=== PATIENT | female | born 1985 | race Caucasian/White ===

== ENCOUNTER → 2019-08-20 10:14 | Outpatient (BNVA) | payer BC, SELFPAY | PROVIDERS: Family Provider Nurse Practitioner Family; PCP Nurse Practitioner Family; Visit Provider Internal Medicine Rheumatology | DX: R76.8 Other specified abnormal immunological findings in serum (principal); M35.9 Systemic involvement of connective tissue, unspecified; M54.2 Cervicalgia; M54.9 Dorsalgia, unspecified; M25.50 Pain in unspecified joint; J44.9 Chronic obstructive pulmonary disease, unspecified | CPT/HCPCS: 99214 ==

== ENCOUNTER → 2019-12-18 10:28 | Outpatient (BNVA) | payer BC, SELFPAY | PROVIDERS: Family Provider Nurse Practitioner Family; PCP Nurse Practitioner Family; Visit Provider Internal Medicine Rheumatology | DX: Z79.899 Other long term (current) drug therapy (principal); Z11.59 Encounter for screening for other viral diseases; R53.83 Other fatigue; R76.8 Other specified abnormal immunological findings in serum | CPT/HCPCS: 36415; 80076; 81001; 82306; 82565; 82570; 84156; 84439; 84443; 85025; 85651; 86140; 86803 ==

== ENCOUNTER 2020-01-29 10:49 | Outpatient (CLI) | payer MEDICAID, SELFPAY ==
[2020-01-29 11:42] LABS: Alanine Aminotransferase 14 U/L (0-33); Albumin Level 4.2 g/dL (3.5-5.2); Alkaline Phosphatase 54 IU/L (35-105); Aspartate Amino Transferase 22 U/L (0-32); C Reactive Protein 72.1 mg/L (0.0-4.9); Globulin 3.2 g/dL (1.3-4.6); Glomerular Filtration Rate 94.7 mL/min (90-130); Total Bilirubin 0.2 mg/dL (0.15-1.2); Total Protein 7.4 g/dL (6.6-8.7)
== END 2020-01-29 10:50 | disposition home or self-care (01) ==
LOC: LAB 10:56
PROVIDERS: PCP Family Medicine; Visit Provider Internal Medicine Rheumatology
DX: Z79.899 Other long term (current) drug therapy (principal)
CPT/HCPCS: 36415; 80076; 81001; 82565; 82575; 84156; 86140

== ENCOUNTER 2020-01-30 13:37 | Emergency (ER) | payer MEDICAID, SELFPAY ==
[2020-01-30 13:44] VITALS: BP 127/84; PULSE 105; RESP 14; TEMP 36.2; O2SAT 97; BMI 20.7
--- NOTE | 2020-01-30 17:20 | ED_ITS ---
HPI - General Adult General: Chief complaint: General Medical Stated complaint: n/v, lupus problems Time Seen by Provider: 01/30/20 16:25 History of Present Illness: HPI narrative: 34-year-old female comes in states having a lupus flare.. She usually sees rheumatology and has been started on hydroxychloroquine recently and seemed to been doing better but for the last few weeks or months she has been having more problems she is having some vomiting and diarrhea today she was supposed to have some labs done and had difficulty getting the blood drawn. She did get started on Cipro prednisone today she states she still feels very achy and has a lot of myalgias. Onset (ago): week(s) Radiation: non-radiation Severity: severe Quality: aching Pain Consistency: intermittent Relieving factors: none Exacerbating factors: none Associated symptoms: Reports confusion, decreased appetite, malaise, nausea, vomiting and weakness; Deny chest pain, cough, diaphoresis, dyspnea, fevers/chills, headache(s) or rash Treatments prior to arrival: other (Prednisone) Review of Systems Const: Reports: malaise; Denies: diaphoresis ENMT: Denies: throat pain, ear or mastoid pain, nasal discharge or nasal congestion Card: Denies: chest pain Resp: Denies: dyspnea GI: Reports: nausea and vomiting : Denies: flank pain, difficulty voiding, dysuria, urinary frequency or urin jaja urgency Skin/Breast: Denies: rash or pruritus Neuro: Reports: confusion; Denies: headache(s) PFS ED PFSH: Medical History (Updated 02/07/20 @ 00:00 by ) Acute anxiety Anxiety Arthralgia of both hands Asthmatic bronchitis , chronic Bipolar disorder delivery delivered x3 High risk medication use Positive PITO (antinuclear antibody) Undifferentiated connective tissue disease Social History (Updated 02/03/20 @ 12:03 by Ileana Mina LPN) Smoking and tobacco status: former smoker Alcohol intake: never Physical Exam Const: COMMON NORMALS: no acute distress GENERAL APPEARANCE: cooperative and comfortable ORIENTATION/CONSCIOUSNESS: Yes awake, Yes oriented to person, Yes oriented to place and Yes oriented to time HENMT: COMMON NORMALS: normocephalic, atraumatic, hearing grossly normal bilaterally, external ears normal, EAC's normal, TM's normal bilaterally, Normal nasal mucous membranes and turbinates present, moist oral mucous membranes and oropharynx normal HEAD & SCALP: normocephalic and atraumatic NOSE: Normal nasal mucous membranes and turbinates present EXTERNAL EAR: Yes external ears normal EXTERNAL AUDITORY CANAL: EAC's normal TYMPANIC MEMBRANE: TM's normal bilaterally Eye: COMMON NORMALS: Equal, round and reactive pupils present, EOMs intact bilaterally, conjunctivae normal and no scleral icterus CONJUNCTIVA: Yes conjunctivae normal PUPIL: Yes Equal, round and reactive pupils present Neck/C-Spine: COMMON NORMALS: full ROM, no lymphadenopathy, supple and no JVD Lymph: LYMPHATIC: no lymphadenopathy noted and no lymphedema noted Resp: COMMON NORMALS: normal respiratory effort, No retractions, No use of accessory muscles and clear to auscultation bilaterally AUSCULTATION: clear to auscultation bilaterally Cardio: COMMON NORMALS: no JVD, regular rate, regular rhythm and No murmurs present (Cardio) RATE: regular rate RHYTHM: regular rhythm GI: COMMON NORMALS: Soft to palpation and No hepatosplenomegaly present AUSCULTATION: Yes normoactive bowel sounds PALPATION: Yes Soft to palpation, No Tenderness to palpation present (GI), No Guarding due to palpation present (GI) and Yes No hepatosplenomegaly present Extremity: COMMON NORMALS: normal to inspection, capillary refill normal, no clubbing, cyanosis or edema, no calf tenderness and no pedal edema Neuro: SENSORIUM/ORIENTATION: Yes oriented to person, Yes oriented to place and Yes oriented to time Skin: COMMON NORMALS: no rashes or lesions noted GENERAL SKIN EXAM: no rashes or lesions noted Course Vital Signs: Vital signs: Vital Signs Temperature 97.1 F L 01/30/20 13:44 Pulse Rate 78 01/30/20 20:32 Respiratory Rate 16 01/30/20 20:32 Blood Pressure 114/72 01/30/20 20:32 Pulse Oximetry 96 01/30/20 20:32 MDM - General Adult MDM Narrative: Medical decision making narrative: Patient given 125 of IV Solu-Medrol. Encouraged her to continue the steroid taper her primary care gave her. Resume tomorrow. She is feeling much better will discharge home. Lab Data: Labs: Lab Results 01/30/20 01/30/20 01/30/20 Range/Units 18:46 18:46 18:46 WBC 5.9 (4.0-10.0) 10^3/ uL RBC 4.55 (4.1-5.3) 10^6/u L Hgb 13.6 (11.5-15.3) g/dL Hct 41.1 (37.0-47.0) % MCV 90.3 (81-99) fL MCH 29.9 (28.0-34.0) pg MCHC 33.1 (30.0-36.0) g/dL RDW 11.9 L (12.1-15.1) % Plt Count 327 (130-400) 10^3/c mm MPV 10.6 H (7.4-10.4) fL Neut % (Auto) 70.9 % Lymph % (Auto) 20.1 % [place] % (Auto) 8.2 % Eos % (Auto) 0.2 % Baso % (Auto) 0.3 % Neut # (Auto) 4.16 (1.8-7.7) 10^3/u L Lymph # (Auto) 1.2 (0.8-4.8) 10^3/u L [place] # (Auto) 0.5 (0.2-0.9) 10^3/u L Eos # (Auto) 0.0 (0.0-0.8) 10^3/u L Baso # (Auto) 0.0 (0.0-0.1) 10^3/u L Nucleated RBC % (a uto) 0 % Nucleated RBCs # 0.0 /100WBC ESR 59 H (0-15) mm/hr Sodium 139 (136-145) mmol/L Potassium 4.2 (3.5-5.1) mmol/L Chloride 101 (98-107) mmol/L Carbon Dioxide 25 (22-29) mmol/L Anion Gap 17.2 (5-19) BUN 16 (6-20) mg/dL Creatinine 0.6 (0.5-0.9) mg/dL GFR Calculation 113.1 (90-130) mL/min Glucose 108 (65-115) mg/dL Calculated Osmolal ity 285 (285-295) mOsm/k g Calcium 9.9 (8.5-10.5) mg/dL Total Bilirubin 0.2 (0.15-1.2) mg/dL AST 25 (0-32) U/L ALT 13 (0-33) U/L Alkaline Phosphata se 59 (35-105) IU/L C-Reactive Protein 69.6 H (0.0-4.9) mg/L Total Protein 8.5 (6.6-8.7) g/dL Albumin 4.8 (3.5-5.2) g/dL Globulin 3.7 (1.3-4.6) g/dL Discharge Plan Discharge Patient Disposition: Home, Self-Care Clinical Impression: Lupus, Nausea & vomiting Condition: Stable Prescriptions: New Zofran 4 mg tablet 4 mg PO Q6H PRN (Reason: nausea and vomiting) Qty: 15 RF: 0 No Action hydroxychloroquine 200 mg tablet 200 mg PO DAILY Qty: 30 RF: 3 doxycycline hyclate 100 mg capsule 100 mg PO BID 10 Days Qty: 20 RF: 0 prednisone 5 mg tablet 5 mg PO BID Qty: 60 RF: 3 pantoprazole 40 mg tablet,delayed release (DR/EC) 40 mg PO DAILY Qty: 30 RF: 3 hydroxyzine HCl 10 mg tablet 10 mg PO TID PRN (Reason: unknown) RF: 0 mirtazapine [Remeron] 15 mg tablet 7.5 mg PO DAILY PRN (Reason: unknown) RF: 0 bupropion HCl 150 mg tablet sustained-release 12 hr 150 mg PO BID RF: 0 Vitamin C Powder See Rx Instructions .ROUTE .COMPLEX RF: 0 ibuprofen 200 mg Tablet 800 mg PO PRN RF: 0 fluticasone propionate 50 mcg/actuation spray,suspension 2 spray INTRANASAL DAILY RF: 0 Vitamin B-12 1 - 2 ml PO DAILY RF: 0 Vitamin D Drops See Rx Instructions .ROUTE .COMPLEX RF: 0 naproxen 1 - 2 tab PO PRN RF: 0 Discharge Orders: Discharge Order (Routine); Ordered 01/30/20 Ordered By: Agustin Squires Referrals: Maverick Moore [Primary Care Provider] - Discharge Diet: Clear Liquid Discharge Activity: Increase activity as tolerated Activity Restrictions/Additional Instructions: Follow-up with your primary care doctor within the next week return to the ER for recurrence of persistent nausea and vomiting Discharge Date/Time: 01/30/20 20:33 Coding Level of Care Code ED Wire Stitcher Operator for [facility] Fwd Exam Comprehensive
--- NOTE | 2020-01-30 18:57 | W.ED.GENADLT ---
HPI - General Adult General: Chief complaint: General Medical Stated complaint: n/v, lupus problems Time Seen by Provider: 01/30/20 16:25 History of Present Illness: Quality: aching Relieving factors: none Exacerbating factors: none Treatments prior to arrival: other (Prednisone) [facility] ED PFSH: Medical History Acute anxiety Arthralgia of both hands Asthmatic bronchitis , chronic Bipolar disorder delivery delivered x3 High risk medication use Positive PITO (antinuclear antibody) Undifferentiated connective tissue disease Social History (Updated 01/30/20 @ 17:30 by Agustin Squires DO) Smoking and tobacco status: former smoker Alcohol intake: never Procedures EJ/Peripheral Line Arm R: Time Out Performed: Yes Skin Cleansed in Sterile Fashion: Yes Size (gauge): 20 IV Secured and Dressing Applied: Yes Patient Tolerated Procedure: well Additional Comments: Ultrasound guidance was utilized. Tip of the needle was visualized in the vein and catheter was advanced with good blood draw and flushing afterward - Darcie Newsome DO Course Vital Signs: Vital signs: Vital Signs Temperature 97.1 F L 01/30/20 13:44 Pulse Rate 105 H 01/30/20 13:44 Respiratory Rate 14 01/30/20 13:44 Blood Pressure 127/84 01/30/20 13:44 Pulse Oximetry 97 01/30/20 13:44 Discharge Plan Discharge Condition: Good Prescriptions: No Action prednisone 10 mg tablet 10 mg PO DAILY Qty: 10 RF: 0 hydroxyzine HCl 10 mg tablet 10 mg PO TID PRN (Reason: unknown) RF: 0 mirtazapine [Remeron] 15 mg tablet 7.5 mg PO DAILY PRN (Reason: unknown) RF: 0 bupropion HCl 150 mg tablet sustained-release 12 hr 150 mg PO BID RF: 0 Vitamin C Powder See Rx Instructions .ROUTE .COMPLEX RF: 0 ibuprofen 200 mg Tablet 800 mg PO PRN RF: 0 fluticasone propionate 50 mcg/actuation spray,suspension 2 spray INTRANASAL DAILY RF: 0 Vitamin B-12 1 - 2 ml PO DAILY RF: 0 Vitamin D Drops See Rx Instructions .ROUTE .COMPLEX RF: 0 naproxen 1 - 2 tab PO PRN RF: 0 hydroxychloroquine 200 mg tablet 200 mg PO DAILY RF: 0 Coding Level of Care Code ED Multiple Effect Evaporator Operator for Chg Fwd
[2020-01-30 18:58] LABS: Basophils % 0.3 %; Eosinophils % 0.2 %; Hematocrit 41.1 % (37.0-47.0); Hemoglobin 13.6 g/dL (11.5-15.3); Lymphocytes # 1.2 10^3/uL (0.8-4.8); Lymphocytes % 20.1 %; Mean Corpuscular HGB Conc 33.1 g/dL (30.0-36.0); Mean Corpuscular Hemoglobin 29.9 pg (28.0-34.0); Mean Corpuscular Volume 90.3 fL (81-99); Mean Platelet Volume 10.6 fL (7.4-10.4); Monocytes # 0.5 10^3/uL (0.2-0.9); Monocytes % 8.2 %; Neutrophils # 4.16 10^3/uL (1.8-7.7); Neutrophils % 70.9 %; Nucleated Red Blood Cells % 0 %; Platelet Count 327 10^3/cmm (130-400); Red Blood Count 4.55 10^6/uL (4.1-5.3); Red Cell Distribution Width 11.9 % (12.1-15.1); White Blood Count 5.9 10^3/uL (4.0-10.0)
[2020-01-30] MEDS: ondansetron 2 mg/ML SDV 2 mL 4 MG IVP (19:13)
[2020-01-30] MEDS: sodium chloride 0.9% 1,000 ML 999 ML IV (19:14)
[2020-01-30 19:21] LABS: Alanine Aminotransferase 13 U/L (0-33); Albumin Level 4.8 g/dL (3.5-5.2); Alkaline Phosphatase 59 IU/L (35-105); Anion Gap 17.2 (5-19); Aspartate Amino Transferase 25 U/L (0-32); Blood Urea Nitrogen 16 mg/dL (6-20); C Reactive Protein 69.6 mg/L (0.0-4.9); Calcium 9.9 mg/dL (8.5-10.5); Carbon Dioxide 25 mmol/L (22-29); Chloride 101 mmol/L (98-107); Globulin 3.7 g/dL (1.3-4.6); Glomerular Filtration Rate 113.1 mL/min (90-130); Glucose 108 mg/dL (65-115); Osmolality Calculated 285 mOsm/kg (285-295); Potassium 4.2 mmol/L (3.5-5.1); Sodium 139 mmol/L (136-145); Total Bilirubin 0.2 mg/dL (0.15-1.2); Total Protein 8.5 g/dL (6.6-8.7)
[2020-01-30 20:32] VITALS: BP 114/72; PULSE 78; RESP 16; O2SAT 96
[2020-01-30 21:11] LABS: Erythrocyte Sedimentation Rate 59 mm/hr (0-15)
== END 2020-01-30 20:33 | disposition home or self-care (01) ==
PROVIDERS: Emergency Provider Family Medicine; PCP Family Medicine
DX: R11.2 Nausea with vomiting, unspecified (principal); M32.9 Systemic lupus erythematosus, unspecified; Z87.891 Personal history of nicotine dependence
CPT/HCPCS: 12345; 36573; 80053; 85025; 85651; 86140; 96361; 96374; 96375; 99282; 99283; J2405; J2930; J7030

== ENCOUNTER → 2020-02-03 11:45 | Outpatient (BNVA) | payer MEDICAID, SELFPAY | PROVIDERS: PCP Family Medicine; Visit Provider Internal Medicine Rheumatology | DX: M35.9 Systemic involvement of connective tissue, unspecified (principal); M25.541 Pain in joints of right hand; M25.542 Pain in joints of left hand; R76.8 Other specified abnormal immunological findings in serum; F41.9 Anxiety disorder, unspecified; F31.9 Bipolar disorder, unspecified; Z79.899 Other long term (current) drug therapy | CPT/HCPCS: 99214 ==

== ENCOUNTER 2020-02-15 17:43 | Emergency (ER) | payer MEDICAID, SELFPAY ==
[2020-02-15 17:57] VITALS: BMI 20.7
[2020-02-15 18:01] VITALS: BP 135/73; PULSE 96; RESP 18; TEMP 36.8; O2SAT 99
--- NOTE | 2020-02-15 18:29 | W.ED.GENADLT ---
HPI - General Adult General: Chief complaint: General Medical Stated complaint: hurts all over Time Seen by Provider: 02/15/20 18:28 Source: patient Mode of arrival: ambulatory Limitations: no limitations History of Present Illness: HPI narrative: 34-year-old female comes in with a history of lupus or other autoimmune disorder. Patient has seen the slurry control tender and they feel that she does not have lupus. At this time they are referring her to neurology for further work-up for MS. Patient reports that she has pain all over and and states that she notices some improvement with the increase in the steroid from 5 mg twice a day to 10 mg twice a day. Patient thinks it may she may need to have a increase in the dose again. Patient appears well. Patient appears in no acute distress. Patient appears alert mild pain at rest. Review of Systems General: Reports: 10 or more systems reviewed and unremarkable except in HPI and below Musc: Reports: other (Generalized body pain) PFS ED PFSH: Medical History (Updated 02/15/20 @ 21:13 by ELISEO Gabriel) Acute anxiety Anxiety Arthralgia of both hands Asthmatic bronchitis , chronic Bipolar disorder delivery delivered x3 High risk medication use Positive PITO (antinuclear antibody) Undifferentiated connective tissue disease Social History (Updated 02/03/20 @ 12:03 by Ileana Mina LPN) Smoking and tobacco status: former smoker Alcohol intake: never History of recent travel: No Female Reproductive History: Date of last menstrual period: 02/15/20 Physical Exam Const: COMMON NORMALS: no acute distress and patient oriented x3 GENERAL APPEARANCE: cooperative HENMT: COMMON NORMALS: normocephalic and Normal external nose present HEAD & SCALP: normal to inspection and normocephalic NOSE: Normal external nose present THROAT: posterior oropharynx normal Eye: GENERAL EYE: appearance normal, both eyes and all related structures Neck/C-Spine: COMMON NORMALS: full ROM Lymph: LYMPHATIC: no lymphadenopathy noted Chest: COMMONS NORMALS: normal inspection of the chest Resp: COMMON NORMALS: normal respiratory effort EFFORT & INSPECTION: Yes able to speak in complete sentences Cardio: COMMON NORMALS: regular rate and regular rhythm RATE: regular rate RHYTHM: regular rhythm GI: COMMON NORMALS: non-tender : COMMON NORMALS: Yes no CVA tenderness BLADDER/KIDNEY EXAM: Yes no CVA tenderness Back/Pelvis: COMMON NORMALS: no CVA tenderness and thoracic and lumbar spine normal to inspection Extremity: COMMON NORMALS: normal to inspection Neuro: COMMON NORMALS: patient oriented x3 and moves all extremities Psych: COMMON NORMALS: mental status grossly normal and cooperative Skin: COMMON NORMALS: no rashes or lesions noted GENERAL SKIN EXAM: no rashes or lesions noted Course Vital Signs: Vital signs: Vital Signs Temperature 98.3 F 02/15/20 18:01 Pulse Rate 82 02/15/20 21:04 Respiratory Rate 14 02/15/20 21:04 Blood Pressure 130/81 02/15/20 21:04 Pulse Oximetry 98 02/15/20 21:04 MDM - General Adult MDM Narrative: Medical decision making narrative: Patient comes in today with complaints of generalized joint pain and muscle aches. Patient had thought she was positive for lupus but was told by the slurry control tender he did not think it was a lupus. Patient has been referred to neurology for further evaluation to rule out multiple sclerosis. Exam notes abdomen soft nontender. Patient moves all extremities well. No abnormalities are noted in the eyes. Vital signs are normal. Differential diagnosis includes but not limited to rheumatoid arthritis, lupus, multiple sclerosis, fibromyalgia, malingering. Laboratory values noted a mild increase in white blood cells at 13 and a mild anemia at 10 and 34. Patient had reported that she had had some improvement with an increase in her prednisone from 5 to 10 mg twice a day, I will increase her prednisone to 20 mg twice a day for the next 7 days and we will give her 80 mg of Solu-Medrol in the emergency department. Patient should continue with routine scheduled specialist appointments and follow-up with her primary care for other treatment options. Patient reports understanding agreed to plan. Lab Data: Labs: Lab Results 02/15/20 02/15/20 02/15/20 Range/Units 18:59 18:59 20:30 WBC 13.1 H (4.0-10.0) 10^3/ uL RBC 3.61 L (4.1-5.3) 10^6/u L Hgb 10.8 L (11.5-15.3) g/dL Hct 34.4 L (37.0-47.0) % MCV 95.3 (81-99) fL MCH 29.9 (28.0-34.0) pg MCHC 31.4 (30.0-36.0) g/dL RDW 13.9 (12.1-15.1) % Plt Count 292 (130-400) 10^3/c mm MPV 11.3 H (7.4-10.4) fL Neut % (Auto) 74.7 % Lymph % (Auto) 17.1 % [place] % (Auto) 7.3 % Eos % (Auto) 0.2 % Baso % (Auto) 0.2 % Neut # (Auto) 9.80 H (1.8-7.7) 10^3/u L Lymph # (Auto) 2.2 (0.8-4.8) 10^3/u L [place] # (Auto) 1.0 H (0.2-0.9) 10^3/u L Eos # (Auto) 0.0 (0.0-0.8) 10^3/u L Baso # (Auto) 0.0 (0.0-0.1) 10^3/u L Nucleated RBC % (a uto) 0 % Nucleated RBCs # 0.0 /100WBC Sodium 141 (136-145) mmol/L Potassium 3.8 (3.5-5.1) mmol/L Chloride 109 H (98-107) mmol/L Carbon Dioxide 20 L (22-29) mmol/L Anion Gap 15.8 (5-19) BUN 17 (6-20) mg/dL Creatinine 0.7 (0.5-0.9) mg/dL GFR Calculation 94.7 (90-130) mL/min Glucose 110 (65-115) mg/dL Calculated Osmolal ity 289 (285-295) mOsm/k g Calcium 9.5 (8.5-10.5) mg/dL Total Bilirubin 0.2 (0.15-1.2) mg/dL AST 22 (0-32) U/L ALT 23 (0-33) U/L Alkaline Phosphata se 58 (35-105) IU/L Total Protein 6.0 L (6.6-8.7) g/dL Albumin 4.0 (3.5-5.2) g/dL Globulin 2.0 (1.3-4.6) g/dL Urine Color Straw (Yellow) Urine Appearance Clear (CLEAR) Urine pH 6 (5-7) Ur Specific Gravit y 1.015 (1.005-1.030) Urine Protein Neg (Negative) Urine Glucose (UA) Norm (Normal) Urine Ketones Negative (Negative) Urine Blood Neg (Negative) Urine Nitrate Negative (Negative) Urine Bilirubin Neg (NEGATIVE) Urine Urobilinogen Norm (Negative) mg/dL Ur Leukocyte Micaela ase Negative (Negative) Discharge Plan Discharge Patient Disposition: Home Clinical Impression: Positive PITO (antinuclear antibody) Arthralgia Qualifiers: Joint pain location: unspecified Qualified Code(s): M25.50 - Pain in unspecified joint Condition: Stable Prescriptions: New prednisone 20 mg tablet 20 mg PO BID 7 Days Qty: 14 RF: 0 No Action hydroxychloroquine 200 mg tablet 200 mg PO DAILY Qty: 30 RF: 3 doxycycline hyclate 100 mg capsule 100 mg PO BID 10 Days Qty: 20 RF: 0 prednisone 5 mg tablet 5 mg PO BID Qty: 60 RF: 3 pantoprazole 40 mg tablet,delayed release (DR/EC) 40 mg PO DAILY Qty: 30 RF: 3 hydroxyzine HCl 10 mg tablet 10 mg PO TID PRN (Reason: unknown) RF: 0 mirtazapine [Remeron] 15 mg tablet 7.5 mg PO DAILY PRN (Reason: unknown) RF: 0 bupropion HCl 150 mg tablet sustained-release 12 hr 150 mg PO BID RF: 0 Vitamin C Powder See Rx Instructions .ROUTE .COMPLEX RF: 0 ibuprofen 200 mg Tablet 800 mg PO PRN RF: 0 fluticasone propionate 50 mcg/actuation spray,suspension 2 spray INTRANASAL DAILY RF: 0 Vitamin B-12 1 - 2 ml PO DAILY RF: 0 Vitamin D Drops See Rx Instructions .ROUTE .COMPLEX RF: 0 naproxen 1 - 2 tab PO PRN RF: 0 Zofran 4 mg tablet 4 mg PO Q6H PRN (Reason: nausea and vomiting) Qty: 15 RF: 0 Discharge Orders: Discharge Order (Routine); Ordered 02/15/20 Ordered By: Ruben Moreira Referrals: Maverick Moore [Primary Care Provider] - Discharge Diet: Usual diet Discharge Activity: Increase activity as tolerated Activity Restrictions/Additional Instructions: Take prednisone 20 mg twice a day for the next 7 days. Then decrease dosing back to the 10 mg twice a day. Follow-up with primary care for further treatment and evaluation. Follow-up with slurry control tender or neurologist as scheduled. Coding Level of Care Code ED Hand Meat Salter for Chg Fwd Exam Comprehensive
[2020-02-15 18:41] VITALS: BP 132/74; PULSE 88; RESP 18; O2SAT 98
[2020-02-15 19:15] LABS: Basophils % 0.2 %; Eosinophils % 0.2 %; Hematocrit 34.4 % (37.0-47.0); Hemoglobin 10.8 g/dL (11.5-15.3); Lymphocytes # 2.2 10^3/uL (0.8-4.8); Lymphocytes % 17.1 %; Mean Corpuscular HGB Conc 31.4 g/dL (30.0-36.0); Mean Corpuscular Hemoglobin 29.9 pg (28.0-34.0); Mean Corpuscular Volume 95.3 fL (81-99); Mean Platelet Volume 11.3 fL (7.4-10.4); Monocytes % 7.3 %; Neutrophils % 74.7 %; Nucleated Red Blood Cells % 0 %; Platelet Count 292 10^3/cmm (130-400); Red Blood Count 3.61 10^6/uL (4.1-5.3); Red Cell Distribution Width 13.9 % (12.1-15.1); White Blood Count 13.1 10^3/uL (4.0-10.0)
[2020-02-15 19:51] LABS: Alanine Aminotransferase 23 U/L (0-33); Alkaline Phosphatase 58 IU/L (35-105); Anion Gap 15.8 (5-19); Aspartate Amino Transferase 22 U/L (0-32); Blood Urea Nitrogen 17 mg/dL (6-20); Calcium 9.5 mg/dL (8.5-10.5); Carbon Dioxide 20 mmol/L (22-29); Chloride 109 mmol/L (98-107); Glomerular Filtration Rate 94.7 mL/min (90-130); Glucose 110 mg/dL (65-115); Osmolality Calculated 289 mOsm/kg (285-295); Potassium 3.8 mmol/L (3.5-5.1); Sodium 141 mmol/L (136-145); Total Bilirubin 0.2 mg/dL (0.15-1.2)
[2020-02-15 20:52] LABS: Add Urine Microscopic? NO
[2020-02-15 20:56] LABS: Bilirubin Urine Neg (NEGATIVE); Blood Urine Neg (Negative); Glucose Urine UA Norm (Normal); Ketones Urine Negative (Negative); Leukocyte Esterase Urine Negative (Negative); Nitrate Urine Negative (Negative); Protein Urine Neg (Negative); Specific Gravity, Urine 1.015 (1.005-1.030); Urine Appearance Clear (CLEAR); Urine Color Straw (Yellow); Urobilinogen Urine Norm (Negative); pH Urine 6 (5-7)
[2020-02-15 21:04] VITALS: BP 130/81; PULSE 82; RESP 14; O2SAT 98
[2020-02-15 21:33] VITALS: BP 118/76; PULSE 90; RESP 18; O2SAT 98
== END 2020-02-15 21:35 | disposition home or self-care (01) ==
PROVIDERS: Emergency Provider Nurse Practitioner Family; PCP Family Medicine
DX: M25.50 Pain in unspecified joint (principal); Z87.891 Personal history of nicotine dependence
CPT/HCPCS: 12345; 36415; 80053; 81003; 85025; 96372; 99282; 99283; J2930

== ENCOUNTER → 2020-04-23 11:42 | Outpatient (BNVA) | payer MEDICAID, SELFPAY | PROVIDERS: PCP Family Medicine; Referring Provider Internal Medicine Rheumatology; Visit Provider Specialist | DX: R29.90 Unspecified symptoms and signs involving the nervous system (principal); F31.9 Bipolar disorder, unspecified; F41.9 Anxiety disorder, unspecified; G43.711 Chronic migraine without aura, intractable, with status migrainosus; M79.7 Fibromyalgia | CPT/HCPCS: 99204 ==

== ENCOUNTER 2020-07-20 16:41 | Emergency (ER) | payer MEDICAID, SELFPAY ==
[2020-07-20 16:45] VITALS: BP 112/67; PULSE 82; RESP 18; TEMP 36.4; O2SAT 98; BMI 22.6
--- NOTE | 2020-07-20 21:31 | W.ED.ABDPA2 ---
HPI - Abdominal Pain General: Chief Complaint: Abdominal Pain Stated Complaint: ABDOMINAL PAIN, INFLAMATION Time Seen by Provider: 07/20/20 21:31 History of Present Illness: HPI narrative: Patient is a 35-year-old female who comes to the ED with bilateral flank pain and UTI symptoms. Patient says for the past week she has had increased urine frequency and dysuria. She is also developing some lower right and left pelvic pain and bilateral flank pain. She says that she took some [id number] Azo to try to help with her UTI but it has not improved symptoms. Today she has developed nausea as well. Denies any fever, chills, chest pain, emesis, constipation, diarrhea, blood in the stool. Patient denies any chance of being and has had her tubes tied. Associated Symptoms: Reports dysuria and nausea; Denies chills, constipation, diarrhea, fever(s), hematochezia, hematuria and vomiting Related Data: Date of Last Menstrual Period: 07/06/20 Review of Systems Const: Denies: fever(s), chills or fatigue Eyes: Denies: change in vision or eye discomfort ENMT: Denies: throat pain, odynophagia, nasal discharge or nasal congestion Card: Denies: chest pain, palpitations, edema, swelling of feet/ankles, dyspnea on exertion or orthopnea Resp: Denies: dyspnea, productive cough or non-productive cough GI: Reports: nausea; Denies: abdominal pain, vomiting, diarrhea, constipation or hematochezia : Reports: flank pain, dysuria, urinary frequency and pelvic pain; Denies: hematuria Musc: Denies: neck pain, back pain or extremity swelling Skin/Breast: Denies: rash or new lesions Neuro: Denies: headache(s), numbness in extremities or weakness in extremities PFSH ED PFSH: Medical History Acute anxiety Anxiety Arthralgia of both hands Asthmatic bronchitis , chronic Bipolar disorder delivery delivered x3 High risk medication use Positive PITO (antinuclear antibody) Undifferentiated connective tissue disease Family History Mother Cancer Father Cancer Social History Smoking and tobacco status: former smoker Alcohol intake: never History of recent travel: No Female Reproductive History: Date of last menstrual period: 07/06/20 Physical Exam Const: COMMON NORMALS: no acute distress, patient oriented x3, healthy appearing and alert GENERAL APPEARANCE: cooperative and comfortable HENMT: COMMON NORMALS: normocephalic HEAD & SCALP: normocephalic MOUTH: Normal oral and palatal mucosa present THROAT: posterior oropharynx normal and uvula midline Eye: COMMON NORMALS: Equal, round and reactive pupils present PUPIL: Yes Equal, round and reactive pupils present Neck/C-Spine: COMMON NORMALS: supple GENERAL: Yes normal visual inspection Resp: COMMON NORMALS: normal respiratory effort, No retractions, No use of accessory muscles and clear to auscultation bilaterally AUSCULTATION: clear to auscultation bilaterally Cardio: COMMON NORMALS: regular rate, regular rhythm, S1 normal heart sound present, S2 normal heart sound present, No gallops present (Cardio), No clicks present (Cardio), No murmurs present (Cardio) and Peripheral pulses 2+ throughout RATE: regular rate RHYTHM: regular rhythm HEART SOUNDS: S1 normal heart sound present and S2 normal heart sound present PERIPHERAL PULSES: Peripheral pulses 2+ throughout GI: COMMON NORMALS: Normal to inspection, nondistended, normoactive bowel sounds present, Soft to palpation, non-tender and no masses PALPATION: Yes Soft to palpation : BLADDER/KIDNEY EXAM: Yes CVA tenderness (Mild tenderness) bilateral Back/Pelvis: GENERAL BACK: Yes CVA tenderness (Mild tenderness) CVA tenderness: bilateral Extremity: COMMON NORMALS: normal to inspection and no pedal edema Neuro: COMMON NORMALS: patient oriented x3 SENSORIUM/ORIENTATION: Yes alert GAIT: Yes Normal gait present Skin: GENERAL SKIN EXAM: dry skin Course Vital Signs: Vital signs: Vital Signs Temperature 97.5 F L 07/20/20 16:45 Pulse Rate 80 07/20/20 22:56 Respiratory Rate 16 07/21/20 00:20 Blood Pressure 133/74 07/20/20 22:56 Pulse Oximetry 98 07/21/20 00:20 MDM - Abdominal Pain MDM Narrative: Medical decision making narrative: Patient is a 35-year-old female comes to the ED with UTI symptoms and bilateral flank pain. White blood cell count 12.4 and the rest of CBC and CMP was unremarkable. UA positive nitrates, blood, white blood cells and bacteria?significant signs of UTI. Due to patient's bilateral flank pain and UTI patient diagnosed with pyelonephritis. She was given IV fluids and Rocephin while here in the ED. Vital signs stable. Patient a good candidate for outpatient treatment. She was given a prescription for cefdinir. Return to ED precautions given. Follow-up with PCP in 7 to 10 days for reevaluation. Patient understood agree with plan. Lab Data: Attestation: I reviewed the patient's lab results. Labs: Lab Results 07/20/20 07/20/20 07/20/20 Range/Units 23:00 23:20 23:20 WBC 12.4 H (4.0-10.0) 10^3/ uL RBC 3.85 L (4.1-5.3) 10^6/u L Hgb 11.7 (11.5-15.3) g/dL Hct 35.7 L (37.0-47.0) % MCV 92.7 (81-99) fL MCH 30.4 (28.0-34.0) pg MCHC 32.8 (30.0-36.0) g/dL RDW 13.2 (12.1-15.1) % Plt Count 330 (130-400) 10^3/c mm MPV 11.0 H (7.4-10.4) fL Neut % (Auto) 71.4 % Lymph % (Auto) 18.3 % [place] % (Auto) 7.9 % Eos % (Auto) 1.9 % Baso % (Auto) 0.3 % Neut # (Auto) 8.83 H (1.8-7.7) 10^3/u L Lymph # (Auto) 2.3 (0.8-4.8) 10^3/u L [place] # (Auto) 1.0 H (0.2-0.9) 10^3/u L Eos # (Auto) 0.2 (0.0-0.8) 10^3/u L Baso # (Auto) 0.0 (0.0-0.1) 10^3/u L Nucleated RBC % (a uto) 0 % Nucleated RBCs # 0.0 /100WBC Sodium 140 (136-145) mmol/L Potassium 4.1 (3.5-5.1) mmol/L Chloride 105 (98-107) mmol/L Carbon Dioxide 29 (22-29) mmol/L Anion Gap 10.1 (5-19) BUN 12 (6-20) mg/dL Creatinine 0.8 (0.5-0.9) mg/dL GFR Calculation 80.7 L (90-130) mL/min Glucose 83 (65-115) mg/dL Calculated Osmolal ity 289 (285-295) mOsm/k g Calcium 9.3 (8.5-10.5) mg/dL Total Bilirubin 0.2 (0.15-1.2) mg/dL AST 19 (0-32) U/L ALT 11 (0-33) U/L Alkaline Phosphata se 74 (35-105) IU/L Total Protein 6.3 L (6.6-8.7) g/dL Albumin 3.9 (3.5-5.2) g/dL Globulin 2.4 (1.3-4.6) g/dL Lipase 31 (13-60) U/L Urine Color [place] (Yellow) Urine Appearance Hazy A (CLEAR) Urine pH 8.0 H (5-7) Ur Specific Gravit y 1.010 (1.005-1.030) Urine Protein 1+ H (Negative) Urine Glucose (UA) Norm (Normal) Urine Ketones Negative (Negative) Urine Blood 2+ H (Negative) Urine Nitrate Positive H (Negative) Urine Bilirubin Neg (Negative) Urine Urobilinogen 4 H (Negative) mg/dL Ur Leukocyte Micaela ase 2+ H (Negative) Urine RBC None (0-2) /hpf Urine WBC 80-100 H (0-5) /hpf Ur Squamous Epith Cells 0-4 H (0-5) /hpf Amorphous Sediment Not Reportable Urine Bacteria 3+ H (NONE) /hpf Discharge Plan Discharge Patient Disposition: Home Clinical Impression: Pyelonephritis Condition: Stable Prescriptions: New cefdinir 300 mg capsule 300 mg PO BID 10 Days Qty: 20 RF: 0 No Action hydroxychloroquine 200 mg tablet 200 mg PO DAILY Qty: 30 RF: 3 doxycycline hyclate 100 mg capsule 100 mg PO BID 10 Days Qty: 20 RF: 0 prednisone 5 mg tablet 5 mg PO BID Qty: 60 RF: 3 prednisone 20 mg tablet 20 mg PO DAILY RF: 0 zonisamide [Zonegran] 100 mg capsule 400 mg PO DAILY Qty: 120 RF: 5 hydroxyzine HCl 10 mg tablet 10 mg PO TID PRN (Reason: unknown) RF: 0 mirtazapine [Remeron] 15 mg tablet 7.5 mg PO DAILY PRN (Reason: unknown) RF: 0 pantoprazole 40 mg tablet,delayed release (DR/EC) 40 mg PO DAILY Qty: 30 RF: 1 bupropion HCl 150 mg tablet sustained-release 12 hr 150 mg PO BID RF: 0 Vitamin C Powder See Rx Instructions .ROUTE .COMPLEX RF: 0 ibuprofen 200 mg Tablet 800 mg PO PRN RF: 0 fluticasone propionate 50 mcg/actuation spray,suspension 2 spray INTRANASAL DAILY RF: 0 Vitamin B-12 1 - 2 ml PO DAILY RF: 0 Vitamin D Drops See Rx Instructions .ROUTE .COMPLEX RF: 0 naproxen 1 - 2 tab PO PRN RF: 0 Zofran 4 mg tablet 4 mg PO Q6H PRN (Reason: nausea and vomiting) Qty: 15 RF: 0 Discharge Orders: Discharge ED (Routine); Ordered 07/21/20 Ordered By: Chad Duval Referrals: Maverick Moore [Primary Care Provider] - Discharge Diet: Regular Discharge Activity: Resume usual activity Patient Instructions: Urinary Tract Infection in Women (ED), Pyelonephritis Activity Restrictions/Additional Instructions: Follow-up with medical provider as directed in 7 to 10 days for reevaluation. Take full course of antibiotic as prescribed. Drink plenty of fluids and stay hydrated. Take [id number] Tylenol or ibuprofen for pain. Return to the ER or your medical provider if condition worsens. Please read and understand discharge instructions. If any questions, please ask. Coding Level of Care Code ED Supply Chain Manager for Cindy Fwd Exam Comprehensive
[2020-07-20 22:56] VITALS: BP 133/74; PULSE 80; RESP 14; O2SAT 97
[2020-07-20 23:51] LABS: Basophils % 0.3 %; Eosinophils # 0.2 10^3/uL (0.0-0.8); Eosinophils % 1.9 %; Hematocrit 35.7 % (37.0-47.0); Hemoglobin 11.7 g/dL (11.5-15.3); Lymphocytes # 2.3 10^3/uL (0.8-4.8); Lymphocytes % 18.3 %; Mean Corpuscular HGB Conc 32.8 g/dL (30.0-36.0); Mean Corpuscular Hemoglobin 30.4 pg (28.0-34.0); Mean Corpuscular Volume 92.7 fL (81-99); Monocytes % 7.9 %; Neutrophils # 8.83 10^3/uL (1.8-7.7); Neutrophils % 71.4 %; Nucleated Red Blood Cells % 0 %; Platelet Count 330 10^3/cmm (130-400); Red Blood Count 3.85 10^6/uL (4.1-5.3); Red Cell Distribution Width 13.2 % (12.1-15.1); White Blood Count 12.4 10^3/uL (4.0-10.0)
[2020-07-20 23:53] LABS: Urine Color Orange (Yellow)
[2020-07-20 23:54] LABS: Add Urine Microscopic? YES; Bilirubin Urine Neg (Negative); Blood Urine 2+ (Negative); Glucose Urine UA Norm (Normal); Ketones Urine Negative (Negative); Leukocyte Esterase Urine 2+ (Negative); Nitrate Urine Positive (Negative); Protein Urine 1+ (Negative); Urine Appearance Hazy (CLEAR); Urobilinogen Urine 4 mg/dL (Negative)
[2020-07-20 23:55] LABS: Add Urine Culture? Yes; Bacteria Urine 3+ /hpf; Squamous Epithelial Cell Urine 0-4 /hpf (0-5); WBC Urine 80-100 /hpf (0-5)
[2020-07-21 00:20] VITALS: RESP 16; O2SAT 98
[2020-07-21] MEDS: morphine 4 mg/mL SDV 1 mL 2 MG IVP (00:20)
[2020-07-21 00:31] LABS: Alanine Aminotransferase 11 U/L (0-33); Albumin Level 3.9 g/dL (3.5-5.2); Alkaline Phosphatase 74 IU/L (35-105); Aspartate Amino Transferase 19 U/L (0-32); Blood Urea Nitrogen 12 mg/dL (6-20); Calcium 9.3 mg/dL (8.5-10.5); Carbon Dioxide 29 mmol/L (22-29); Chloride 105 mmol/L (98-107); Globulin 2.4 g/dL (1.3-4.6); Glomerular Filtration Rate 80.7 mL/min (90-130); Glucose 83 mg/dL (65-115); Lipase 31 U/L (13-60); Osmolality Calculated 289 mOsm/kg (285-295); Sodium 140 mmol/L (136-145); Total Bilirubin 0.2 mg/dL (0.15-1.2); Total Protein 6.3 g/dL (6.6-8.7)
[2020-07-21 00:47] LABS: Anion Gap 10.1 (5-19); Potassium 4.1 mmol/L (3.5-5.1)
[2020-07-21] MEDS: cefTRIAXone 2,000 MG in sodium chloride 0.9% (plus) 50 ML 100 MG IV (00:51)
[2020-07-21] MEDS: sodium chloride 0.9% 1,000 ML 999 ML IV (00:52)
[2020-07-21] MEDS: ondansetron 2 mg/ML SDV 2 mL 4 MG IVP (00:57)
[2020-07-21 01:54] LABS: HCG, Serum Qual Negative (Negative)
[2020-07-21 02:29] VITALS: BP 127/84; PULSE 82; RESP 16; O2SAT 96
== END 2020-07-21 02:30 | disposition home or self-care (01) ==
PROVIDERS: Family Medicine; Emergency Provider Physician Assistant; PCP Family Medicine
DX: N12 Tubulo-interstitial nephritis, not specified as acute or chronic (principal); Z87.891 Personal history of nicotine dependence
CPT/HCPCS: 12345; 80053; 81001; 83690; 84703; 85025; 87077; 87086; 87186; 96361; 96374; 96375; 99282; 99283; J0696; J2270; J2405; J2930; J7030

== ENCOUNTER → 2020-08-05 13:45 | Outpatient (BNVA) | payer MEDICAID, SELFPAY | PROVIDERS: PCP Family Medicine; Visit Provider Specialist | DX: G43.711 Chronic migraine without aura, intractable, with status migrainosus (principal); M79.7 Fibromyalgia; F31.9 Bipolar disorder, unspecified; Z87.891 Personal history of nicotine dependence | CPT/HCPCS: 99214 ==

== ENCOUNTER 2020-08-14 11:29 | Emergency (ER) | payer MEDICAID, SELFPAY ==
[2020-08-14 11:35] VITALS: BP 152/93; PULSE 84; RESP 16; TEMP 36.1; O2SAT 97; BMI 21.7
[2020-08-14 12:06] LABS: Add Urine Microscopic? NO
[2020-08-14 12:07] LABS: Bilirubin Urine Neg (Negative); Blood Urine Neg (Negative); Glucose Urine UA Norm (Normal); Ketones Urine Negative (Negative); Leukocyte Esterase Urine Negative (Negative); Nitrate Urine Negative (Negative); Protein Urine Neg (Negative); Urine Appearance Clear (CLEAR); Urine Color Yellow (Yellow); Urobilinogen Urine Norm (Negative); pH Urine 5 (5-7)
--- NOTE | 2020-08-14 12:33 | W.ED.GENADLT ---
HPI - General Adult General: Chief complaint: General Medical Stated complaint: POSS KIDNEY INFECT, WORSENING TREMORS Time Seen by Provider: 08/14/20 11:43 History of Present Illness: HPI narrative: 35-year-old female comes in complaining of dysuria with bilateral flank pain. She denies any hematuria. She also reports she was recently started on Depakote and it had an adverse reaction evidently altering her judgment and what she describes as making her crazy she states she was arrested for reckless driving she stopped the Depakote a week ago she states she was told by Dr. Villatoro to come in and have a level drawn. She has a baseline essential tremor for which she takes propranolol she said that has been little bit worse lately as well. No fever sweats or chills. Onset (ago): day(s) Radiation: flank Severity: moderate Quality: aching Pain Consistency: intermittent Relieving factors: none Exacerbating factors: none Associated symptoms: Deny chest pain, confusion, cough, diaphoresis, decreased appetite, dyspnea, fevers/chills, headache(s), malaise, nausea, rash, palpitations, seizures, short of breath, syncope, vomiting or weakness Treatments prior to arrival: none Review of Systems Const: Denies: malaise or diaphoresis ENMT: Denies: throat pain, ear or mastoid pain, nasal discharge or nasal congestion Card: Denies: chest pain, palpitations or syncope Resp: Denies: dyspnea GI: Denies: nausea or vomiting : Denies: flank pain, difficulty voiding, dysuria, urinary frequency or urinary urgency Skin/Breast: Denies: rash Neuro: Denies: headache(s) or confusion [facility] ED PFSH: Medical History Acute anxiety Anxiety Arthralgia of both hands Asthmatic bronchitis , chronic Bipolar disorder delivery delivered x3 High risk medication use Positive PITO (antinuclear antibody) Undifferentiated connective tissue disease Family History Mother Cancer Father Cancer Social History Smoking and tobacco status: former smoker Alcohol intake: never History of recent travel: No Female Reproductive History: Date of last menstrual period: 07/06/20 Physical Exam Const: COMMON NORMALS: no acute distress GENERAL APPEARANCE: cooperative and comfortable ORIENTATION/CONSCIOUSNESS: Yes awake, Yes oriented to person, Yes oriented to place and Yes oriented to time HENMT: COMMON NORMALS: normocephalic, atraumatic and hearing grossly normal bilaterally HEAD & SCALP: normocephalic and atraumatic Neck/C-Spine: COMMON NORMALS: no JVD Resp: COMMON NORMALS: normal respiratory effort, No retractions, No use of accessory muscles and clear to auscultation bilaterally AUSCULTATION: clear to auscultation bilaterally Cardio: COMMON NORMALS: no JVD, regular rate, regular rhythm and No murmurs present (Cardio) RATE: regular rate RHYTHM: regular rhythm GI: COMMON NORMALS: Soft to palpation and No hepatosplenomegaly present AUSCULTATION: Yes normoactive bowel sounds PALPATION: Yes Soft to palpation, No Tenderness to palpation present (GI), No Guarding due to palpation present (GI) and Yes No hepatosplenomegaly present Extremity: COMMON NORMALS: normal to inspection, capillary refill normal, no clubbing, cyanosis or edema, no calf tenderness and no pedal edema Neuro: SENSORIUM/ORIENTATION: Yes oriented to person, Yes oriented to place and Yes oriented to time Skin: COMMON NORMALS: no rashes or lesions noted GENERAL SKIN EXAM: no rashes or lesions noted Course Vital Signs: Vital signs: Vital Signs Temperature 97.0 F L 08/14/20 11:35 Pulse Rate 76 08/14/20 15:15 Respiratory Rate 17 08/14/20 15:15 Blood Pressure 122/79 08/14/20 15:15 Pulse Oximetry 98 08/14/20 15:15 MDM - General Adult MDM Narrative: Medical decision making narrative: Lab findings unremarkable. Her Depakote level is undetectable and her urine does not show signs of infection. Suspect that she has some of her baseline tremor causing a number of her symptoms she reports that her hands are twitching. Recommend that she follow-up with Dr. Villatoro. Return if has further problems. Lab Data: Labs: Lab Results 08/14/20 08/14/20 08/14/20 Range/Units 12:05 13:15 13:15 WBC (4.0-10.0) 10^3/ uL RBC (4.1-5.3) 10^6/u L Hgb (11.5-15.3) g/dL Hct (37.0-47.0) % MCV (81-99) fL MCH (28.0-34.0) pg MCHC (30.0-36.0) g/dL RDW (12.1-15.1) % Plt Count (130-400) 10^3/c mm MPV (7.4-10.4) fL Neut % (Auto) % Lymph % (Auto) % [place] % (Auto) % Eos % (Auto) % Baso % (Auto) % Neut # (Auto) (1.8-7.7) 10^3/u L Lymph # (Auto) (0.8-4.8) 10^3/u L [place] # (Auto) (0.2-0.9) 10^3/u L Eos # (Auto) (0.0-0.8) 10^3/u L Baso # (Auto) (0.0-0.1) 10^3/u L Nucleated RBC % (a uto) % Nucleated RBCs # /100WBC Sodium 143 (136-145) mmol/L Potassium 3.4 L (3.5-5.1) mmol/L Chloride 105 (98-107) mmol/L Carbon Dioxide 27 (22-29) mmol/L Anion Gap 14.4 (5-19) BUN 16 (6-20) mg/dL Creatinine 0.7 (0.5-0.9) mg/dL GFR Calculation 94.2 (90-130) mL/min Glucose 88 (65-115) mg/dL Calculated Osmolal ity 297 H (285-295) mOsm/k g Calcium 9.7 (8.5-10.5) mg/dL Total Bilirubin 0.2 (0.15-1.2) mg/dL AST 18 (0-32) U/L ALT 11 (0-33) U/L Alkaline Phosphata se 57 (35-105) IU/L Total Protein 6.6 (6.6-8.7) g/dL Albumin 4.0 (3.5-5.2) g/dL Globulin 2.6 (1.3-4.6) g/dL Urine Color Yellow (Yellow) Urine Appearance Clear (CLEAR) Urine pH 5 (5-7) Ur Specific Gravit y 1.030 (1.005-1.030) Urine Protein Neg (Negative) Urine Glucose (UA) Norm (Normal) Urine Ketones Negative (Negative) Urine Blood Neg (Negative) Urine Nitrate Negative (Negative) Urine Bilirubin Neg (Negative) Urine Urobilinogen Norm (Negative) mg/dL Ur Leukocyte Micaela ase Negative (Negative) Valproic Acid < 2.8 L (50-100) ug/mL 08/14/20 Range/Units 14:49 WBC 5.7 (4.0-10.0) 10^3/ uL RBC 4.08 L (4.1-5.3) 10^6/u L Hgb 12.2 (11.5-15.3) g/dL Hct 36.2 L (37.0-47.0) % MCV 88.7 (81-99) fL MCH 29.9 (28.0-34.0) pg MCHC 33.7 (30.0-36.0) g/dL RDW 12.9 (12.1-15.1) % Plt Count 295 (130-400) 10^3/c mm MPV 10.8 H (7.4-10.4) fL Neut % (Auto) 35.2 % Lymph % (Auto) 49.3 % [place] % (Auto) 11.1 % Eos % (Auto) 3.3 % Baso % (Auto) 0.9 % Neut # (Auto) 2.02 (1.8-7.7) 10^3/u L Lymph # (Auto) 2.8 (0.8-4.8) 10^3/u L [place] # (Auto) 0.6 (0.2-0.9) 10^3/u L Eos # (Auto) 0.2 (0.0-0.8) 10^3/u L Baso # (Auto) 0.1 (0.0-0.1) 10^3/u L Nucleated RBC % (a uto) 0 % Nucleated RBCs # 0.0 /100WBC Sodium (136-145) mmol/L Potassium (3.5-5.1) mmol/L Chloride (98-107) mmol/L Carbon Dioxide (22-29) mmol/L Anion Gap (5-19) BUN (6-20) mg/dL Creatinine (0.5-0.9) mg/dL GFR Calculation (90-130) mL/min Glucose (65-115) mg/dL Calculated Osmolal ity (285-295) mOsm/k g Calcium (8.5-10.5) mg/dL Total Bilirubin (0.15-1.2) mg/dL AST (0-32) U/L ALT (0-33) U/L Alkaline Phosphata se (35-105) IU/L Total Protein (6.6-8.7) g/dL Albumin (3.5-5.2) g/dL Globulin (1.3-4.6) g/dL Urine Color (Yellow) Urine Appearance (CLEAR) Urine pH (5-7) Ur Specific Gravit y (1.005-1.030) Urine Protein (Negative) Urine Glucose (UA) (Normal) Urine Ketones (Negative) Urine Blood (Negative) Urine Nitrate (Negative) Urine Bilirubin (Negative) Urine Urobilinogen (Negative) mg/dL Ur Leukocyte Micaela ase (Negative) Valproic Acid (50-100) ug/mL Discharge Plan Discharge Patient Disposition: Home Clinical Impression: Medication side effects, Dysuria, Essential tremor Condition: Stable Prescriptions: No Action mirtazapine [Remeron] 15 mg tablet 7.5 mg PO DAILY PRN (Reason: unknown) RF: 0 hydroxyzine HCl 25 mg tablet 25 mg PO TID PRN (Reason: Anxiety) RF: 0 gabapentin 300 mg capsule 300 mg PO TID RF: 0 Tumeric 1 tab PO DAILY@0700 RF: 0 Red Ghulam 1 tab PO DAILY@0700 RF: 0 bupropion HCl 150 mg tablet sustained-release 12 hr 150 mg PO BID@0700,1800 RF: 0 Vitamin C Powder See Rx Instructions .ROUTE .COMPLEX RF: 0 ibuprofen 200 mg Tablet 800 mg PO PRN RF: 0 fluticasone propionate 50 mcg/actuation spray,suspension 2 spray INTRANASAL DAILY@0700 RF: 0 Vitamin B-12 1 - 2 ml PO DAILY RF: 0 Vitamin D Drops See Rx Instructions .ROUTE .COMPLEX RF: 0 propranolol 10 mg tablet 10 mg PO DAILY@0700 RF: 0 baclofen 10 mg tablet 10 mg PO DAILY@0700 RF: 0 ProAir HFA 90 mcg/actuation HFA aerosol inhaler 2 puff INHALATION BID@0700,1800 RF: 0 pantoprazole 40 mg tablet,delayed release (DR/EC) 40 mg PO DAILY@0700 RF: 0 hydroxychloroquine 200 mg tablet 200 mg PO DAILY@0700 RF: 0 Discharge Orders: Discharge ED (Routine); Ordered 08/14/20 Ordered By: Agustin Squires Referrals: Maverick Moore [Primary Care Provider] - Coding Level of Care Code ED Filing Or Registry Clerk for Cindy Wood
[2020-08-14 13:36] LABS: Alanine Aminotransferase 11 U/L (0-33); Alkaline Phosphatase 57 IU/L (35-105); Anion Gap 14.4 (5-19); Aspartate Amino Transferase 18 U/L (0-32); Blood Urea Nitrogen 16 mg/dL (6-20); Calcium 9.7 mg/dL (8.5-10.5); Carbon Dioxide 27 mmol/L (22-29); Chloride 105 mmol/L (98-107); Globulin 2.6 g/dL (1.3-4.6); Glomerular Filtration Rate 94.2 mL/min (90-130); Glucose 88 mg/dL (65-115); Osmolality Calculated 297 mOsm/kg (285-295); Potassium 3.4 mmol/L (3.5-5.1); Sodium 143 mmol/L (136-145); Total Bilirubin 0.2 mg/dL (0.15-1.2); Total Protein 6.6 g/dL (6.6-8.7)
[2020-08-14 13:40] LABS: Valproic Acid Level < 2.8 ug/mL (50-100)
[2020-08-14 14:53] LABS: Basophils # 0.1 10^3/uL (0.0-0.1); Basophils % 0.9 %; Eosinophils # 0.2 10^3/uL (0.0-0.8); Eosinophils % 3.3 %; Hematocrit 36.2 % (37.0-47.0); Hemoglobin 12.2 g/dL (11.5-15.3); Lymphocytes # 2.8 10^3/uL (0.8-4.8); Lymphocytes % 49.3 %; Mean Corpuscular HGB Conc 33.7 g/dL (30.0-36.0); Mean Corpuscular Hemoglobin 29.9 pg (28.0-34.0); Mean Corpuscular Volume 88.7 fL (81-99); Mean Platelet Volume 10.8 fL (7.4-10.4); Monocytes # 0.6 10^3/uL (0.2-0.9); Monocytes % 11.1 %; Neutrophils # 2.02 10^3/uL (1.8-7.7); Neutrophils % 35.2 %; Nucleated Red Blood Cells % 0 %; Platelet Count 295 10^3/cmm (130-400); Red Blood Count 4.08 10^6/uL (4.1-5.3); Red Cell Distribution Width 12.9 % (12.1-15.1); White Blood Count 5.7 10^3/uL (4.0-10.0)
[2020-08-14 15:15] VITALS: BP 122/79; PULSE 76; RESP 17; O2SAT 98
== END 2020-08-14 15:15 | disposition home or self-care (01) ==
PROVIDERS: Emergency Provider Family Medicine; PCP Family Medicine
DX: G25.0 Essential tremor (principal); T88.7XXA Unspecified adverse effect of drug or medicament, initial encounter; T50.905A Adverse effect of unspecified drugs, medicaments and biological substances, initial encounter; R30.0 Dysuria; Z87.891 Personal history of nicotine dependence
CPT/HCPCS: 12345; 36415; 80053; 80164; 81003; 85025; 99281; 99282

== ENCOUNTER 2020-10-12 13:13 | Emergency (ER) | payer MEDICAID, SELFPAY ==
[2020-10-12 13:41] VITALS: BP 122/84; PULSE 98; RESP 14; TEMP 36.8; O2SAT 99; BMI 21.7
--- NOTE | 2020-10-12 14:40 | W.ED.HA ---
HPI - Headache General: Chief Complaint: Headache Stated Complaint: fibro, migrainge, burning in neck, dehydration Time Seen by Provider: 10/12/20 14:27 Source: patient Mode of arrival: ambulatory Limitations: no limitations History of Present Illness: HPI Narrative: Patient is a 35-year-old female who presents to ED today with complaints of a migraine headache, pain related to her fibromyalgia, and anxiety. Patient tells me her headache currently feels identical to previous migraines. Patient follows up with Dr. Villatoro for her migraines. She states she also has a go go dancer who has diagnosed her with an autoimmune disorder -she states she does not have a definitive diagnosis. She currently is on immunosuppressant therapy. Patient also has a psychiatrist that she sees for her anxiety. Patient has been on several medications previously with unwanted side effects for all of the above conditions. She currently is taking several medications. MD elicited complaint: headache, migraine and other (anxiety, pain related to her fibromyalgia) Exacerbating factors: none Relieving factors: rest and dark room Associated symptoms: Deny chest pain, fever(s), malaise, nausea or vomiting Review of Systems Const: Denies: fever(s), chills, body aches, fatigue or malaise Eyes: Denies: change in vision, blurry vision or photophobia ENMT: Denies: odynophagia Card: Denies: chest pain Resp: Denies: dyspnea GI: Denies: abdominal pain, nausea or vomiting : Denies: dysuria Musc: Reports: neck pain and other (diffuse pain from fibromyalgia ); Denies: extremity swelling, joint swelling, joint redness, joint warmth or limited range of motion Neuro: Reports: headache(s) Psych: Reports: anxiety PFSH ED PFSH: Medical History (Updated 10/12/20 @ 16:51 by MOIZ Naqvi) Acute anxiety Anxiety Arthralgia of both hands Asthmatic bronchitis , chronic Bipolar disorder delivery delivered x3 High risk medication use Inflammatory arthritis Positive PITO (antinuclear antibody) Raynauds disease Undifferentiated connective tissue disease Family History Mother Cancer Father Cancer Social History Smoking and tobacco status: former smoker Alcohol intake: never History of recent travel: No Female Reproductive History: Date of last menstrual period: 07/06/20 Physical Exam Const: COMMON NORMALS: no acute distress, average body habitus, patient oriented x3, no limitations, healthy appearing, alert and well nourished GENERAL APPEARANCE: cooperative ORIENTATION/CONSCIOUSNESS: Yes awake, Yes oriented to person, Yes oriented to place and Yes oriented to time HENMT: COMMON NORMALS: normocephalic and atraumatic HEAD & SCALP: normocephalic and atraumatic Neck/C-Spine: COMMON NORMALS: full ROM, no lymphadenopathy and no meningeal signs CERVICAL SPINE: Yes Paracervical muscle tenderness Resp: COMMON NORMALS: normal respiratory effort and clear to auscultation bilaterally AUSCULTATION: clear to auscultation bilaterally Cardio: COMMON NORMALS: regular rate and regular rhythm RATE: regular rate RHYTHM: regular rhythm Neuro: MORAIMA COMA SCALE: document GCS findings [place]aima coma scale eye opening: Spontaneous [place] coma scale verbal response: Orientated Moraima coma scale motor response: Obey commands [place]aima coma scale total score: 15 COMMON NORMALS: patient oriented x3, CN's II-XII intact bilaterally, moves all extremities, no focal motor deficits, no sensory deficits noted and gait normal SENSORIUM/ORIENTATION: Yes alert, Yes oriented to person, Yes oriented to place and Yes oriented to time MENINGEAL SIGNS: Yes no meningeal signs Skin: COMMON NORMALS: no rashes or lesions noted GENERAL SKIN EXAM: no rashes or lesions noted Course Vital Signs: Vital signs: Vital Signs Temperature 98.2 F 10/12/20 13:41 Pulse Rate 98 10/12/20 13:41 Respiratory Rate 14 10/12/20 13:41 Blood Pressure 122/84 10/12/20 13:41 Pulse Oximetry 99 10/12/20 13:41 MDM - Headache MDM Narrative: Medical decision making narrative: Patient's ARTEAGA and fibromyalgia pain improved from a 7/10 to a 3/10. She states she still feels anxious. Will order something for this and then patient will be discharged home with recommendations to follow up with her speciality care providers. She verbalizes understanding. Discharge Plan Discharge Patient Disposition: Home Clinical Impression: Anxiety, Fibromyalgia Migraine Qualifiers: Migraine type: without aura Status migrainosus presence: without status migrainosus Intractability: not intractable Qualified Code(s): G43.009 - Migraine without aura, not intractable, without status migrainosus Condition: Stable Prescriptions: No Action mirtazapine [Remeron] 15 mg tablet 7.5 mg PO DAILY PRN (Reason: unknown) RF: 0 hydroxyzine HCl 25 mg tablet 25 mg PO TID PRN (Reason: Anxiety) RF: 0 gabapentin 300 mg capsule 300 mg PO TID RF: 0 Tumeric 1 tab PO DAILY@0700 RF: 0 Red Ghulam 1 tab PO DAILY@0700 RF: 0 Advair Diskus 250-50 mcg/dose Blister With Device 1 inh INHALATION BID@699,1999 RF: 0 Tylenol 325 mg Tablet 325 - 650 mg PO DAILY PRN (Reason: Pain) RF: 0 valacyclovir 1 gram tablet 1,000 mg PO BID@699,1999 RF: 0 Cyanacobalamin 1,000 mcg/mL Solution 1,000 mcg IM Q30D RF: 0 Green Ghulam 1 tab PO DAILY@0700 RF: 0 leflunomide 20 mg tablet 20 mg PO DAILY@0700 RF: 0 bupropion HCl 150 mg tablet sustained-release 12 hr 150 mg PO BID@0700,1800 RF: 0 Vitamin C Powder See Rx Instructions .ROUTE .COMPLEX RF: 0 ibuprofen 200 mg Tablet 800 mg PO PRN RF: 0 fluticasone propionate 50 mcg/actuation spray,suspension 2 spray INTRANASAL DAILY@0700 RF: 0 Vitamin D Drops See Rx Instructions .ROUTE .COMPLEX RF: 0 propranolol 10 mg tablet 10 mg PO DAILY@0700 RF: 0 baclofen 10 mg tablet 10 mg PO QID PRN (Reason: UNKNOWN) RF: 0 albuterol sulfate [ProAir HFA] 90 mcg/actuation HFA aerosol inhaler 2 puff INHALATION BID@0700,1800 RF: 0 pantoprazole 40 mg tablet,delayed release (DR/EC) 40 mg PO DAILY@0700 RF: 0 Discharge Orders: Discharge ED (Routine); Ordered 10/12/20 Ordered By: Misty Augustin Referrals: Maverick Moore [Primary Care Provider] - Patient Instructions: Headache - Migraine (Adult), Fibromyalgia (ED), Anxiety (ED) Coding Level of Care Code ED Mortgage Banker for Chg Fwd Exam Detailed
[2020-10-12] MEDS: sodium chloride 0.9% 1,000 ML 999 ML IV (16:04)
[2020-10-12] MEDS: ketorolac 60 mg/2 mL INJ 30 MG IVP (16:11)
[2020-10-12] MEDS: diphenhydrAMINE 50 mg/mL SDV 1mL IVP (16:11)
[2020-10-12] MEDS: orphenadrine 30 mg/mL Inj 2 mL 60 MG IV (16:11)
[2020-10-12] MEDS: LORazepam 2 mg/mL INJ 1 mL 1 MG IVP (17:08)
== END 2020-10-12 17:15 | disposition home or self-care (01) ==
PROVIDERS: Emergency Provider Physician Assistant; PCP Family Medicine
DX: G43.009 Migraine without aura, not intractable, without status migrainosus (principal); F41.9 Anxiety disorder, unspecified; M79.7 Fibromyalgia; Z87.891 Personal history of nicotine dependence
CPT/HCPCS: 96374; 96375; 99283; J1200; J1885; J2060; J2360; J7030

== ENCOUNTER → 2020-11-04 15:03 | Outpatient (BNVA) | payer MEDICAID, SELFPAY | PROVIDERS: PCP Family Medicine; Visit Provider Internal Medicine Rheumatology | DX: M19.90 Unspecified osteoarthritis, unspecified site (principal); Z79.899 Other long term (current) drug therapy; R76.8 Other specified abnormal immunological findings in serum; M79.7 Fibromyalgia; I73.00 Raynaud's syndrome without gangrene; R41.3 Other amnesia; F41.9 Anxiety disorder, unspecified; Z87.891 Personal history of nicotine dependence | CPT/HCPCS: 99214 ==

== ENCOUNTER → 2020-12-09 10:15 | Outpatient (BNVA) | payer MEDICAID, SELFPAY | PROVIDERS: PCP Family Medicine; Visit Provider Specialist | DX: G43.711 Chronic migraine without aura, intractable, with status migrainosus (principal); F31.9 Bipolar disorder, unspecified; F41.9 Anxiety disorder, unspecified; M35.9 Systemic involvement of connective tissue, unspecified; M79.7 Fibromyalgia; Z87.891 Personal history of nicotine dependence | CPT/HCPCS: 99215 ==

== ENCOUNTER 2021-01-03 17:03 | Emergency (ER) | payer MEDICAID, SELFPAY ==
[2021-01-03 17:16] VITALS: BP 104/66; PULSE 85; RESP 16; TEMP 36.9; O2SAT 98; BMI 23.6
--- NOTE | 2021-01-03 18:17 | W.ED.EYEPROB ---
HPI - Eye Problem General: Chief complaint: Eye Problems Stated complaint: r eye issues Time Seen by Provider: 01/03/21 18:10 History of Present Illness: HPI Narrative: The patient is a 35-year-old female with fibromyalgia who comes to the ER complaining of 2 days right eye erythema with crusting in the mornings. She says it was worse yesterday but still crusted today. She says she thinks she has pinkeye on the right side. She says it felt like there was something in her eye the past couple days but she has not been able to see anything in her eye. Vision normal able to read fine print without I chief complaint: eye redness Onset (ago): day(s) (2) Onset description: gradual Duration: constant Location: right eye Eye Symptoms: redness, foreign body sensation and discharge Place: home Mechanism: none Severity: mild If Pain, Quality: burning Associated symptoms: Reports no associated symptoms; Denies headache(s) or neck pain Review of Systems General: Reports: 10 or more systems reviewed and unremarkable except in HPI and below Const: Denies: fatigue Eyes: Reports: other (Redness of right eye); Denies: change in vision, blurry vision or eye redness ENMT: Denies: throat pain, swelling of lips/tongue, ear or mastoid pain or nasal congestion Card: Denies: chest pain, palpitations, irregular heart rhythm, edema, dyspnea on exertion or orthopnea Resp: Denies: dyspnea, productive cough or non-productive cough GI: Denies: abdominal pain, diarrhea or GI cramping : Denies: flank pain, difficulty voiding, urinary frequency or urinary urgency Musc: Denies: neck pain, back pain, extremity pain, joint pain, joint redness, limited range of motion or muscle weakness Skin/Breast: Denies: rash, pruritus, erythema, skin pain or skin tenderness Neuro: Denies: headache(s), numbness in extremities, weakness in extremities, sensory changes, difficulty walking, dizziness, confusion or Slurred speech present Psych: Denies: anxiety or depression Endo: Denies: polyuria All/Imm: Denies: urticaria, throat swelling or tongue swelling PFSH ED PFSH: Medical History Acute anxiety Anxiety Arthralgia of both hands Asthmatic bronchitis , chronic Bipolar disorder delivery delivered x3 High risk medication use Inflammatory arthritis Positive PITO (antinuclear antibody) Raynauds disease Undifferentiated connective tissue disease Family History Mother Cancer Father Cancer Social History Smoking and tobacco status: former smoker Alcohol intake: never History of recent travel: No Female Reproductive History: Date of last menstrual period: 12/28/20 Physical Exam Const: COMMON NORMALS: no acute distress, average body habitus, patient oriented x3, no limitations, healthy appearing, alert and well nourished GENERAL APPEARANCE: cooperative, comfortable, well kempt and well developed ORIENTATION/CONSCIOUSNESS: Yes awake, Yes oriented to person, Yes oriented to place and Yes oriented to time HENMT: COMMON NORMALS: normocephalic, external ears normal and Normal external nose present HEAD & SCALP: normal to inspection and normocephalic NOSE: Normal external nose present EXTERNAL EAR: Yes external ears normal MOUTH: Normal oral and palatal mucosa present THROAT: posterior oropharynx normal Eye: COMMON NORMALS: Equal, round and reactive pupils present and EOMs intact bilaterally GENERAL EYE: appearance normal, both eyes and all related structures PUPIL: Yes Equal, round and reactive pupils present OTHER: Mild conjunctivitis to the right eye. No abrasions seen. Minimal erythema to the sclera. Minimal crusting seen at the edges of the eye able to read fine print with that eye. Neck/C-Spine: COMMON NORMALS: full ROM, no lymphadenopathy, no meningeal signs and no JVD GENERAL: Yes normal visual inspection Lymph: LYMPHATIC: no lymphadenopathy noted Chest: COMMONS NORMALS: normal inspection of the chest and normal palpation of entire chest wall Resp: COMMON NORMALS: normal respiratory effort, No retractions, No use of accessory muscles, clear to auscultation bilaterally and percussion normal EFFORT & INSPECTION: Yes able to speak in complete sentences AUSCULTATION: clear to auscultation bilaterally PERCUSSION: percussion normal Cardio: COMMON NORMALS: no JVD, regular rate, regular rhythm, S1 normal heart sound present, S2 normal heart sound present and Peripheral pulses 2+ throughout RATE: regular rate RHYTHM: regular rhythm HEART SOUNDS: S1 normal heart sound present and S2 normal heart sound present PERIPHERAL PULSES: Peripheral pulses 2+ throughout GI: COMMON NORMALS: Normal to inspection, nondistended, normoactive bowel sounds present, Soft to palpation, non-tender and no masses INSPECTION: Yes normal to inspection PALPATION: Yes Soft to palpation : COMMON NORMALS: Yes no CVA tenderness BLADDER/KIDNEY EXAM: Yes no CVA tenderness Back/Pelvis: COMMON NORMALS: no CVA tenderness, thoracic and lumbar spine normal to inspection, no thoracic nor lumbar tenderness and thoraco-lumbar ROM normal Extremity: COMMON NORMALS: normal to inspection, full ROM, capillary refill normal, no joint enlargement and no pedal edema GENERAL: Yes normal exam except as noted Neuro: COMMON NORMALS: patient oriented x3, CN's II-XII intact bilaterally, moves all extremities, no focal motor deficits, no sensory deficits noted and gait normal SENSORIUM/ORIENTATION: Yes alert, Yes oriented to person, Yes oriented to place and Yes oriented to time MENINGEAL SIGNS: Yes no meningeal signs Psych: COMMON NORMALS: mental status grossly normal, Normal thought process present, cooperative, normal affect and speech normal APPEARANCE: Yes well kempt ATTITUDE: Yes calm SPEECH: Yes normal speech THOUGHT PROCESS: Normal thought process present Skin: COMMON NORMALS: no rashes or lesions noted GENERAL SKIN EXAM: no rashes or lesions noted Course Vital Signs: Vital signs: Vital Signs Temperature 98.4 F 01/03/21 17:16 Pulse Rate 85 01/03/21 17:16 Respiratory Rate 16 01/03/21 17:16 Blood Pressure 104/66 01/03/21 17:16 Pulse Oximetry 98 01/03/21 17:16 MDM - Eye Problem MDM Narrative: Medical decision making narrative: Patient presents with mild conjunctivitis to the right eye. We will give her ofloxacin and discharge her with that. ER with worsening symptoms at any time otherwise follow-up with a primary care physician in a couple days. Discharge Plan Discharge Patient Disposition: Home Clinical Impression: Conjunctivitis Condition: Stable Prescriptions: New ofloxacin 0.3 % drops 1 drp ophthalmic (eye) Q6H 5 Days RF: 0 No Action methotrexate sodium 2.5 mg tablet 15 mg PO .Q7days Qty: 30 RF: 3 folic acid 1 mg tablet 1 mg PO DAILY Qty: 90 RF: 3 prednisone 5 mg tablet 5 mg PO DAILY Qty: 30 RF: 3 mirtazapine [Remeron] 15 mg tablet 7.5 mg PO DAILY PRN (Reason: unknown) RF: 0 gabapentin 300 mg capsule 300 mg PO TID RF: 0 Tumeric 1 tab PO DAILY@0700 RF: 0 Red Ghulam 1 tab PO DAILY@0700 RF: 0 propranolol 20 mg tablet 20 mg PO DAILY Qty: 30 RF: 2 Ajovy Autoinjector 225 mg/1.5 mL auto-injector 225 mg SUBCUT Q30D Qty: 1.5 RF: 2 Advair Diskus 250-50 mcg/dose Blister With Device 1 inh INHALATION BID@699,1999 RF: 0 Tylenol 325 mg Tablet 325 - 650 mg PO DAILY PRN (Reason: Pain) RF: 0 valacyclovir 1 gram tablet 1,000 mg PO BID@699,1999 RF: 0 Cyanacobalamin 1,000 mcg/mL Solution 1,000 mcg IM Q30D RF: 0 Green Ghulam 1 tab PO DAILY@0700 RF: 0 leflunomide 20 mg tablet 20 mg PO DAILY@0700 RF: 0 bupropion HCl 150 mg tablet sustained-release 12 hr 150 mg PO BID@0700,1800 RF: 0 Vitamin C Powder See Rx Instructions .ROUTE .COMPLEX RF: 0 ibuprofen 200 mg Tablet 800 mg PO PRN RF: 0 fluticasone propionate 50 mcg/actuation spray,suspension 2 spray INTRANASAL DAILY@0700 RF: 0 Vitamin D Drops See Rx Instructions .ROUTE .COMPLEX RF: 0 baclofen 10 mg tablet 10 mg PO QID PRN (Reason: UNKNOWN) RF: 0 albuterol sulfate [ProAir HFA] 90 mcg/actuation HFA aerosol inhaler 2 puff INHALATION BID@0700,1800 RF: 0 pantoprazole 40 mg tablet,delayed release (DR/EC) 40 mg PO DAILY@0700 RF: 0 Discharge Orders: Discharge ED (Routine); Ordered 01/03/21 Ordered By: Clemente Berger Referrals: Maverick Moore [Primary Care Provider] - Discharge Diet: Advance as tolerated Discharge Activity: Resume usual activity Patient Instructions: Conjunctivitis (ED), Opioid Safety Activity Restrictions/Additional Instructions: You have mild conjunctivitis of the right eye. Please use the eyedrops as directed 4 times a day for 5 days. Return to the ER with worsening symptoms otherwise follow-up with your primary care physician later this week to monitor improvement of your symptoms. Coding Level of Care Code ED Psychiatric Social Worker Supervisor for Chg Fwd Exam Comprehensive
[2021-01-03] MEDS: ofloxacin 0.3% Op Soln 5 mL Btl 2 DROP EYE-RIGHT (18:26)
[2021-01-03 18:29] VITALS: RESP 16; TEMP 36.9; O2SAT 98
== END 2021-01-03 18:30 | disposition home or self-care (01) ==
PROVIDERS: Emergency Provider Family Medicine; PCP Family Medicine
DX: H10.9 Unspecified conjunctivitis (principal); Z87.891 Personal history of nicotine dependence
CPT/HCPCS: 99282

== ENCOUNTER 2021-01-05 11:00 | Outpatient (CLI) | payer MEDICAID, SELFPAY ==
--- NOTE | 2021-01-05 11:00 | MR_ITS ---
WS: [id number] MRI BRAIN WITHOUT CONTRAST HISTORY: G43.711 - Chronic migraine without aura, intractable COMPARISON: None available. TECHNIQUE: Diffusion imaging, multiplanar T1, T2 and FLAIR imaging obtained. No evidence for acute infarct or hemorrhage. Joyce-white matter differentiation is normal. No remote or acute infarcts are volume loss. Ventricles and extra-axial spaces are normal. No inferior displacement of cerebellar tonsils. The sella turcica and pituitary gland are unremarkabl e. Dural venous sinuses and sitka of Garcia demonstrate no abnormality on this unenhanced studies. Paranasal sinuses: Clear. Mastoid air cells: Normal. Calvarium and scalp: Intact. MR/MR head wo con* [id number] IMPRESSION: Normal noncontrast MRI brain.
== END 2021-01-05 11:01 | disposition home or self-care (01) ==
LOC: RADWPI 11:04
PROVIDERS: PCP Family Medicine; Visit Provider Specialist
DX: G43.711 Chronic migraine without aura, intractable, with status migrainosus (principal)
CPT/HCPCS: 70551; 99215

== ENCOUNTER 2021-01-11 06:00 | Outpatient (RCR) | payer MEDICAID, SELFPAY | END 2021-01-20 23:59 | disposition home or self-care (01) | LOC: WPT 06:00 | PROVIDERS: PCP Family Medicine; Referring Provider Specialist; Visit Provider Specialist | DX: M54.2 Cervicalgia (principal); G89.29 Other chronic pain | CPT/HCPCS: 97110; 97140; 97161; 97530 ==

== ENCOUNTER 2021-01-21 06:00 | Outpatient (RCR) | payer MEDICAID, SELFPAY | END 2021-02-20 23:59 | disposition home or self-care (01) | LOC: WPT 06:00 | PROVIDERS: PCP Family Medicine; Referring Provider Specialist; Visit Provider Specialist | DX: M54.2 Cervicalgia (principal); G89.29 Other chronic pain | CPT/HCPCS: 97110; 97530 ==

== ENCOUNTER → 2021-02-17 13:46 | Outpatient (BNVA) | payer MEDICAID, SELFPAY | PROVIDERS: PCP Family Medicine; Visit Provider Internal Medicine Rheumatology | DX: R76.8 Other specified abnormal immunological findings in serum (principal); M35.9 Systemic involvement of connective tissue, unspecified; M19.90 Unspecified osteoarthritis, unspecified site; Z79.899 Other long term (current) drug therapy; R41.3 Other amnesia; R41.9 Unspecified symptoms and signs involving cognitive functions and awareness; Z87.891 Personal history of nicotine dependence | CPT/HCPCS: 99214 ==

== ENCOUNTER 2021-02-22 16:14 | Outpatient (CLI) | payer MEDICAID, SELFPAY ==
[2021-02-22 16:53] LABS: Basophils % 0.2 %; Eosinophils # 0.1 10^3/uL (0.0-0.8); Eosinophils % 0.8 %; Hematocrit 40.8 % (37.0-47.0); Hemoglobin 13.5 g/dL (11.5-15.3); Lymphocytes # 1.8 10^3/uL (0.8-4.8); Lymphocytes % 18.2 %; Mean Corpuscular HGB Conc 33.1 g/dL (30.0-36.0); Mean Corpuscular Hemoglobin 31.1 pg (28.0-34.0); Monocytes # 0.6 10^3/uL (0.2-0.9); Monocytes % 6.1 %; Neutrophils # 7.46 10^3/uL (1.8-7.7); Neutrophils % 74.5 %; Nucleated Red Blood Cells % 0 %; Platelet Count 363 10^3/cmm (130-400); Red Blood Count 4.34 10^6/uL (4.1-5.3); Red Cell Distribution Width 13.2 % (12.1-15.1)
[2021-02-22 17:21] LABS: Alanine Aminotransferase 11 U/L (0-33); Albumin Level 4.5 g/dL (3.5-5.2); Alkaline Phosphatase 65 IU/L (35-105); Aspartate Amino Transferase 17 U/L (0-32); C Reactive Protein 1.5 mg/L (0.0-4.9); Globulin 2.6 g/dL (1.3-4.6); Glomerular Filtration Rate 93.6 mL/min (90-130); Total Bilirubin 0.4 mg/dL (0.15-1.2); Total Protein 7.1 g/dL (6.6-8.7)
== END 2021-02-22 16:15 | disposition home or self-care (01) ==
PROVIDERS: PCP Family Medicine; Visit Provider Internal Medicine Rheumatology
DX: M19.90 Unspecified osteoarthritis, unspecified site (principal); R76.8 Other specified abnormal immunological findings in serum; Z79.899 Other long term (current) drug therapy
CPT/HCPCS: 36415; 80076; 82565; 85025; 86140

== ENCOUNTER 2021-03-04 17:02 | Emergency (ER) | payer MEDICAID, SELFPAY ==
[2021-03-04 18:19] VITALS: BP 120/76; PULSE 87; RESP 18; TEMP 35.9; O2SAT 98; BMI 23.2
--- NOTE | 2021-03-04 18:58 | ED_ITS ---
HPI - General Adult General: Chief complaint: General Medical Stated complaint: body aches, Pain in lower back, lethargic, Time Seen by Provider: 03/04/21 18:53 History of Present Illness: HPI narrative: 36-year-old female comes in today with complaints of possible reaction to her Enbrel. She was started on it about 14 days ago and started having some significant hot flashes and blistering of the face. Patient stopped taking the medication 2 days ago and was seen by her pain specialist yesterday but continues to have breakthrough pain. Patient appears restless. Patient appears in no acute distress. Patient does not appear lethargic. Patient does not appear toxic. Patient does have a history of fibromyalgia, inflammatory arthritis, autoimmune disorder, and bipolar disorder. Patient is restless in the emergency room. Review of Systems General: Reports: 10 or more systems reviewed and unremarkable except in HPI and below Musc: Reports: joint pain [facility] ED PFSH: Medical History Acute anxiety Anxiety Arthralgia of both hands Asthmatic bronchitis , chronic Bipolar disorder delivery delivered x3 High risk medication use Inflammatory arthritis Positive PITO (antinuclear antibody) Raynauds disease Undifferentiated connective tissue disease Family History Mother Cancer Father Cancer Social History Smoking and tobacco status: former smoker Alcohol intake: never History of recent travel: No Female Reproductive History: Date of last menstrual period: 12/28/20 Physical Exam Const: COMMON NORMALS: no acute distress and patient oriented x3 GENERAL APPEARANCE: cooperative HENMT: COMMON NORMALS: normocephalic and Normal external nose present HEAD & SCALP: normal to inspection and normocephalic NOSE: Normal external nose present MOUTH: Normal oral and palatal mucosa present THROAT: posterior oropharynx normal Eye: GENERAL EYE: appearance normal, both eyes and all related structures Neck/C-Spine: COMMON NORMALS: full ROM Chest: COMMONS NORMALS: normal inspection of the chest Resp: COMMON NORMALS: normal respiratory effort EFFORT & INSPECTION: Yes able to speak in complete sentences Cardio: COMMON NORMALS: regular rate and regular rhythm RATE: regular rate RHYTHM: regular rhythm GI: COMMON NORMALS: non-tender Back/Pelvis: COMMON NORMALS: thoracic and lumbar spine normal to inspection Extremity: COMMON NORMALS: normal to inspection Neuro: COMMON NORMALS: patient oriented x3 and moves all extremities Psych: COMMON NORMALS: mental status grossly normal and cooperative Skin: COMMON NORMALS: no rashes or lesions noted GENERAL SKIN EXAM: no rashes or lesions noted Course Vital Signs: Vital signs: Vital Signs Temperature 96.6 F L 03/04/21 18:19 Pulse Rate 87 03/04/21 18:19 Respiratory Rate 18 03/04/21 18:19 Blood Pressure 120/76 03/04/21 18:19 Pulse Oximetry 98 03/04/21 18:19 MDM - General Adult MDM Narrative: Medical decision making narrative: 36-year-old female comes in today with breakthrough pain. Patient stopped her Enbrel 2 days ago due to a reaction to it. Patient had tried taking the Tylenol 3 that she was prescribed from her pain specialist but did not have any relief from the pain. Patient came into the emergency room for evaluation and treatment of pain. On exam respirations were even lungs were clear to auscultation. Skin was warm and dry. Vital signs were normal. Differential diagnosis includes but not limited to adverse drug reactions, exacerbation of chronic pain syndrome, malingering. I wanted to draw blood work for evaluation of her white blood cell count liver enzymes but patient was a very difficult stick for lab and they were unable to draw lab. Patient was given 1 hydrocodone 5/325 and had good results for pain control. Patient wished to follow-up with her primary care in the morning for labs. I recommended that patient talk to her pain specialist regarding other medication options. Patient reported understanding agreed to plan. Patient looked well on discharge. Discharge Plan Discharge Patient Disposition: Home Clinical Impression: Myalgia Adverse drug reaction Qualifiers: Encounter type: initial encounter Qualified Code(s): T50.905A - Adverse effect of unspecified drugs, medicaments and biological substances, initial encounter Condition: Stable Prescriptions: No Action folic acid 1 mg tablet 1 mg PO DAILY Qty: 90 RF: 3 methotrexate sodium 2.5 mg tablet 15 mg PO .Q7days Qty: 30 RF: 3 prednisone 5 mg tablet 5 mg PO DAILY Qty: 30 RF: 3 mirtazapine [Remeron] 15 mg tablet 7.5 mg PO DAILY PRN (Reason: unknown) RF: 0 gabapentin 300 mg capsule 300 mg PO TID RF: 0 Tumeric 1 tab PO DAILY@0700 RF: 0 Red Ghulam 1 tab PO DAILY@0700 RF: 0 propranolol 20 mg tablet 20 mg PO DAILY Qty: 30 RF: 2 Ajovy Autoinjector 225 mg/1.5 mL auto-injector 225 mg SUBCUT Q30D Qty: 1.5 RF: 2 ondansetron HCl [Zofran] 4 mg tablet 4 mg PO Q8H PRN (Reason: nausea and vomiting) Qty: 30 RF: 0 sulfasalazine 500 mg tablet 0.5 g PO BID Qty: 60 RF: 3 Advair Diskus 250-50 mcg/dose Blister With Device 1 inh INHALATION BID@699,1999 RF: 0 Tylenol 325 mg Tablet 325 - 650 mg PO DAILY PRN (Reason: Pain) RF: 0 valacyclovir 1 gram tablet 1,000 mg PO BID@699,1999 RF: 0 Cyanacobalamin 1,000 mcg/mL Solution 1,000 mcg IM Q30D RF: 0 Green Ghulam 1 tab PO DAILY@0700 RF: 0 bupropion HCl 150 mg tablet sustained-release 12 hr 150 mg PO BID@0700,1800 RF: 0 Vitamin C Powder See Rx Instructions .ROUTE .COMPLEX RF: 0 ibuprofen 200 mg Tablet 800 mg PO PRN RF: 0 fluticasone propionate 50 mcg/actuation spray,suspension 2 spray INTRANASAL DAILY@0700 RF: 0 albuterol sulfate [ProAir HFA] 90 mcg/actuation HFA aerosol inhaler 2 puff INHALATION BID@0700,1800 RF: 0 pantoprazole 40 mg tablet,delayed release (DR/EC) 40 mg PO DAILY@0700 RF: 0 Discharge Orders: Discharge ED (Routine); Ordered 03/04/21 Ordered By: Ruben Moreira Referrals: Maverick Moore [Primary Care Provider] - Discharge Diet: Usual diet Discharge Activity: Increase activity as tolerated Patient Instructions: Opioid Safety Activity Restrictions/Additional Instructions: Follow-up with primary care in the morning. Drink plenty of fluids. Discussed with specialist regarding Enbrel and recommendations for further treatment. Discussed with rail car painter/sandblaster regarding better pain options. Return to the ER for new concerns. Coding Level of Care Code ED Salesperson Floor Coverings for Cindy Fwd Exam Comprehensive
[2021-03-04] MEDS: HYDROcodone-acetaminophen 5-325 mg Tablet 1 TAB PO (19:37)
[2021-03-04 20:58] VITALS: BP 138/87; PULSE 68; RESP 18; TEMP 35.9; O2SAT 98
[2021-03-04 21:08] LABS: Basophils # 0.1 10^3/uL (0.0-0.1); Basophils % 0.4 %; Eosinophils # 0.1 10^3/uL (0.0-0.8); Eosinophils % 1.1 %; Hematocrit 39.5 % (37.0-47.0); Lymphocytes # 2.3 10^3/uL (0.8-4.8); Lymphocytes % 19.1 %; Mean Corpuscular HGB Conc 32.9 g/dL (30.0-36.0); Mean Corpuscular Hemoglobin 31.3 pg (28.0-34.0); Mean Platelet Volume 11.5 fL (7.4-10.4); Monocytes # 0.7 10^3/uL (0.2-0.9); Monocytes % 5.9 %; Neutrophils # 8.97 10^3/uL (1.8-7.7); Neutrophils % 73.3 %; Nucleated Red Blood Cells % 0 %; Platelet Count 242 10^3/cmm (130-400); Red Blood Count 4.16 10^6/uL (4.1-5.3); Red Cell Distribution Width 13.2 % (12.1-15.1); White Blood Count 12.2 10^3/uL (4.0-10.0)
[2021-03-04 21:21] LABS: Alanine Aminotransferase 9 U/L (0-33); Albumin Level 4.6 g/dL (3.5-5.2); Alkaline Phosphatase 70 IU/L (35-105); Aspartate Amino Transferase 16 U/L (0-32); Blood Urea Nitrogen 12 mg/dL (6-20); Calcium 9.2 mg/dL (8.5-10.5); Carbon Dioxide 24 mmol/L (22-29); Chloride 101 mmol/L (98-107); Globulin 2.2 g/dL (1.3-4.6); Glomerular Filtration Rate 138.1 mL/min (90-130); Glucose 69 mg/dL (65-115); Osmolality Calculated 282 mOsm/kg (285-295); Sodium 137 mmol/L (136-145); Total Bilirubin 0.4 mg/dL (0.15-1.2); Total Protein 6.8 g/dL (6.6-8.7)
[2021-03-04 21:26] LABS: Anion Gap 16.5 (5-19)
[2021-03-04 21:27] LABS: Potassium 4.5 mmol/L (3.5-5.1)
== END 2021-03-04 20:55 | disposition home or self-care (01) ==
PROVIDERS: Emergency Provider Nurse Practitioner Family; PCP Family Medicine
DX: T50.905A Adverse effect of unspecified drugs, medicaments and biological substances, initial encounter (principal); M79.7 Fibromyalgia; M06.4 Inflammatory polyarthropathy; D89.89 Other specified disorders involving the immune mechanism, not elsewhere classified; Z87.891 Personal history of nicotine dependence
CPT/HCPCS: 36415; 80053; 85025; 99283

== ENCOUNTER 2021-04-02 14:19 | Emergency (ER) | payer MEDICAID, SELFPAY ==
[2021-04-02 14:25] VITALS: PULSE 89; RESP 18; TEMP 36.6; O2SAT 99; BMI 23.2
--- NOTE | 2021-04-02 14:44 | W.ED.GENADLT ---
HPI - General Adult General: Chief complaint: General Medical Stated complaint: ARTEAGA, Panic Attack Time Seen by Provider: 04/02/21 14:33 Source: patient Mode of arrival: ambulatory Limitations: no limitations History of Present Illness: HPI narrative: 36-year-old female presents to the ER today for increased anxiety and migraines. Patient reports a long history of anxiety, fibromyalgia, migraines and chronic pain. She was seeing someone for chronic pain however they left shortly after she started seeing them. Patient reports in the past she has gotten trigger point injections by the pain specialist for her headaches which seem to help but for the last 1 month they have been worsening and she thinks the steroid has worn off. Patient reports the headaches are always worse when she is under increased stress and she has been under stress lately. Headaches are mostly located in the back of her head/neck. Patient denies any aura or vision changes associated. She was taking Ativan however has run out and has an appointment with her PCP on the to discuss a refill of Ativan. Patient is still taking the Wellbutrin that she has been on for a while now. She reports increased anxiety and panic attacks that come with shortness of breath and a feeling of doom. Patient denies any SI\HI. Patient denies congestion, runny nose, sore throat, chest pain, shortness of breath, nausea, vomiting, diarrhea, constipation, change in bowel or bladder habits. Onset (ago): month(s) Severity scale (1-10): 7 Quality: aching Pain Consistency: intermittent Relieving factors: none Exacerbating factors: other (stress) Associated symptoms: Reports headache(s); Deny chest pain, dyspnea, nausea, rash, palpitations or vomiting Review of Systems Const: Denies: fever(s), chills or fatigue Eyes: Denies: change in vision, blurry vision or other (aura) ENMT: Denies: throat pain, nasal discharge or nasal congestion Card: Denies: chest pain, palpitations or edema Resp: Denies: dyspnea or wheezing GI: Denies: abdominal pain, nausea, vomiting, diarrhea or constipation Musc: Reports: neck pain; Denies: back pain Skin/Breast: Denies: rash Neuro: Reports: headache(s) Psych: Reports: anxiety and panic attacks PFS ED PFSH: Medical History Acute anxiety Anxiety Arthralgia of both hands Asthmatic bronchitis , chronic Bipolar disorder delivery delivered x3 High risk medication use Inflammatory arthritis Positive PITO (antinuclear antibody) Raynauds disease Undifferentiated connective tissue disease Family History Mother Cancer Father Cancer Social History Smoking and tobacco status: former smoker Alcohol intake: never History of recent travel: No Female Reproductive History: Date of last menstrual period: 12/28/20 Physical Exam Const: COMMON NORMALS: no acute distress, average body habitus, patient oriented x3 and well nourished GENERAL APPEARANCE: cooperative HENMT: COMMON NORMALS: normocephalic, Normal external nose present and Normal nasal mucous membranes and turbinates present HEAD & SCALP: normal to inspection and normocephalic FACE & SINUS: normal facial exam and sinuses nontender NOSE: Normal external nose present and Normal nasal mucous membranes and turbinates present THROAT: posterior oropharynx normal Eye: COMMON NORMALS: conjunctivae normal GENERAL EYE: appearance normal, both eyes and all related structures CONJUNCTIVA: Yes conjunctivae normal Neck/C-Spine: COMMON NORMALS: full ROM, no lymphadenopathy, supple and no JVD GENERAL: Yes normal visual inspection Lymph: LYMPHATIC: no lymphadenopathy noted Resp: COMMON NORMALS: normal respiratory effort, No retractions and clear to auscultation bilaterally AUSCULTATION: clear to auscultation bilaterally Cardio: COMMON NORMALS: no JVD, regular rate, regular rhythm and No murmurs present (Cardio) RATE: regular rate RHYTHM: regular rhythm GI: COMMON NORMALS: Normal to inspection, nondistended, normoactive bowel sounds present, Soft to palpation and non-tender PALPATION: Yes Soft to palpation Back/Pelvis: COMMON NORMALS: thoracic and lumbar spine normal to inspection Extremity: COMMON NORMALS: full ROM Neuro: COMMON NORMALS: patient oriented x3 Psych: COMMON NORMALS: mental status grossly normal Skin: COMMON NORMALS: no rashes or lesions noted GENERAL SKIN EXAM: no rashes or lesions noted Course ED course: Patient appears stable in ER. Thought process appears normal. Patient denies any SI\HI. We will treat patient's acute anxiety with Vistaril to be used as needed. Patient requesting Ativan however it was explained that this is not typically given through the ER, she can follow-up with her PCP to discuss this. Also discussed a muscle relaxer for the tension headaches however patient reports no improvement with muscle relaxers in the past. Did offer a short course of steroids which patient would like to try. Follow-up with PCP as scheduled appointment. Vital Signs: Vital signs: Vital Signs Temperature 97.8 F 04/02/21 14:25 Pulse Rate 89 04/02/21 14:25 Respiratory Rate 18 04/02/21 14:25 Pulse Oximetry 99 04/02/21 14:25 MDM - General Adult MDM Narrative: Medical decision making narrative: Patient is stable in the ER. Patient has chronic anxiety and chronic pain. Patient requesting Ativan however it was explained to her that we do not do that typically through the ER and she can follow-up with her PCP to discuss that. We will do a steroid, short burst of them for the tension headache/migraine. Muscle relaxers were offered however patient reports no improvement with muscle relaxers in the past. We will also do Vistaril for the anxiety attacks. She has an appointment set up with her PCP for the , and she should keep that and discuss all of this with them. Patient denies any SI\HI. Patient verbalized understanding and agreed with this treatment plan. Critical Care Time Critical Care Time: Critical Care Time: No Discharge Plan Discharge Patient Disposition: Home Clinical Impression: Anxiety Chronic tension headache Qualifiers: Intractability: not intractable Qualified Code(s): G44.229 - Chronic tension-type headache, not intractable Condition: Stable Prescriptions: New hydroxyzine pamoate [Vistaril] 25 mg capsule 25 mg PO TID PRN (Reason: anxiety) Qty: 20 RF: 0 prednisone 20 mg tablet 40 mg PO DAILY Qty: 8 RF: 0 No Action folic acid 1 mg tablet 1 mg PO DAILY Qty: 90 RF: 3 mirtazapine [Remeron] 15 mg tablet 7.5 mg PO DAILY PRN (Reason: unknown) RF: 0 gabapentin 300 mg capsule 300 mg PO TID RF: 0 Tumeric 1 tab PO DAILY@0700 RF: 0 Red Ghulam 1 tab PO DAILY@0700 RF: 0 propranolol 20 mg tablet 20 mg PO DAILY Qty: 30 RF: 2 Ajovy Autoinjector 225 mg/1.5 mL auto-injector 225 mg SUBCUT Q30D Qty: 1.5 RF: 2 ondansetron HCl [Zofran] 4 mg tablet 4 mg PO Q8H PRN (Reason: nausea and vomiting) Qty: 30 RF: 0 prednisone 5 mg tablet 7.5 mg PO DAILY Qty: 45 RF: 3 methotrexate sodium 2.5 mg tablet 20 mg PO .Q7days Qty: 40 RF: 3 Advair Diskus 250-50 mcg/dose Blister With Device 1 inh INHALATION BID@0700,1999 RF: 0 Tylenol 325 mg Tablet 325 - 650 mg PO DAILY PRN (Reason: Pain) RF: 0 valacyclovir 1 gram tablet 1,000 mg PO BID@0700,1999 RF: 0 Cyanacobalamin 1,000 mcg/mL Solution 1,000 mcg IM Q30D RF: 0 Green Ghulam 1 tab PO DAILY@0700 RF: 0 bupropion HCl 150 mg tablet sustained-release 12 hr 150 mg PO BID@0700,1800 RF: 0 Vitamin C Powder See Rx Instructions .ROUTE .COMPLEX RF: 0 ibuprofen 200 mg Tablet 800 mg PO PRN RF: 0 fluticasone propionate 50 mcg/actuation spray,suspension 2 spray INTRANASAL DAILY@0700 RF: 0 albuterol sulfate [ProAir HFA] 90 mcg/actuation HFA aerosol inhaler 2 puff INHALATION BID@0700,1800 RF: 0 pantoprazole 40 mg tablet,delayed release (DR/EC) 40 mg PO DAILY@0700 RF: 0 Discharge Orders: Discharge ED (Routine); Ordered 04/02/21 Ordered By: Joyce Harper Referrals: Maverick Moore [Primary Care Provider] - Discharge Diet: Usual diet Discharge Activity: Resume usual activity Patient Instructions: Opioid Safety, Anxiety (ED), Tension Headache (ED) Activity Restrictions/Additional Instructions: Take prednisone and Vistaril as prescribed. Continue home medications. Warm moist heat recommended for neck pain/tension headache. Follow-up with primary care doctor at scheduled appointment. Return to the ER with any new or worsening symptoms. 

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
[2021-04-02 15:05] VITALS: BP 116/63; PULSE 85; RESP 16; O2SAT 99
== END 2021-04-02 15:05 | disposition home or self-care (01) ==
PROVIDERS: Emergency Provider Physician Assistant; PCP Family Medicine
DX: F41.9 Anxiety disorder, unspecified (principal); G44.229 Chronic tension-type headache, not intractable; Z87.891 Personal history of nicotine dependence
CPT/HCPCS: 99281

== ENCOUNTER → 2021-05-12 12:42 | Outpatient (BNVA) | payer MEDICAID, SELFPAY | PROVIDERS: PCP Family Medicine; Visit Provider Specialist | DX: M54.81 Occipital neuralgia (principal); Z79.899 Other long term (current) drug therapy; Z87.891 Personal history of nicotine dependence | CPT/HCPCS: 64405; 64450; 99214; J1030; J3490 ==

== ENCOUNTER 2021-07-05 12:08 | Emergency (ER) | payer MEDICAID, SELFPAY ==
[2021-07-05 12:25] VITALS: BP 105/65; PULSE 84; RESP 18; TEMP 36.6; O2SAT 99; BMI 24.5
[2021-07-05 12:51] VITALS: BP 105/71; PULSE 75; RESP 16; O2SAT 98
--- NOTE | 2021-07-05 12:53 | ED_ITS ---
HPI - Headache General: Chief Complaint: Headache Stated Complaint: BILATERAL EAR PAIN, THROAT PAIN, SINUS CONGESTION Time Seen by Provider: 07/05/21 12:26 Source: patient Mode of arrival: ambulatory Limitations: no limitations History of Present Illness: HPI Narrative: Patient is a 36-year-old female who presents to ED today with complaints of a migraine headache. Patient states she chronically has migraine headaches. Patient states she sees Dr. Villatoro for her migraine headaches. She states she had received occipital nerve blocks previously from a pain management provider that worked well. She states Dr. Villatoro performed this procedure on her last visit and she states it did not seem to help very much. Patient is not on any prophylactic or abortive medications for her migraines. She states her headache today feels identical to previous migraines. MD elicited complaint: headache Onset (ago): year(s) Location: occipital and parietal Pain scale (0-10): 8 Associated symptoms: Deny chest pain, fever(s), malaise, nausea, rash or vomiting Review of Systems Const: Denies: fever(s), chills, body aches, fatigue or malaise ENMT: Reports: nasal congestion; Denies: throat pain, odynophagia or ear or mastoid pain Card: Denies: chest pain Resp: Denies: dyspnea, productive cough, non-productive cough or chest congestion GI: Denies: abdominal pain, nausea, vomiting or diarrhea Musc: Denies: neck pain, back pain, extremity pain or joint pain Skin/Breast: Denies: rash Neuro: Denies: headache(s), numbness in extremities, weakness in extremities, sensory changes or dizziness PFS ED PFSH: Medical History Acute anxiety Anxiety Arthralgia of both hands Asthmatic bronchitis , chronic Bipolar disorder delivery delivered x3 High risk medication use Inflammatory arthritis Positive PITO (antinuclear antibody) Raynauds disease Undifferentiated connective tissue disease Family History Mother Cancer Father Cancer Social History Smoking and tobacco status: former smoker Second hand smoke exposure: No Alcohol intake: never History of recent travel: No Female Reproductive History: Date of last menstrual period: 06/16/21 Physical Exam Const: COMMON NORMALS: no acute distress, average body habitus, patient oriented x3, no limitations, healthy appearing, alert and well nourished GENERAL APPEARANCE: cooperative ORIENTATION/CONSCIOUSNESS: Yes awake, Yes oriented to person, Yes oriented to place and Yes oriented to time HENMT: COMMON NORMALS: normocephalic and atraumatic HEAD & SCALP: normal to inspection, normocephalic and atraumatic Eye: GENERAL EYE: appearance normal, both eyes and all related structures Resp: COMMON NORMALS: normal respiratory effort and clear to auscultation bilaterally AUSCULTATION: clear to auscultation bilaterally Cardio: COMMON NORMALS: regular rate and regular rhythm RATE: regular rate RHYTHM: regular rhythm Extremity: COMMON NORMALS: normal to inspection Neuro: MORAIMA COMA SCALE: document GCS findings [place] coma scale eye opening: Spontaneous [place] coma scale verbal response: Orientated [place] coma scale motor response: Obey commands [place] coma scale total score: 15 COMMON NORMALS: patient oriented x3 SENSORIUM/ORIENTATION: Yes alert, Yes oriented to person, Yes oriented to place and Yes oriented to time Skin: COMMON NORMALS: no rashes or lesions noted GENERAL SKIN EXAM: no rashes or lesions noted TRAUMA: no lacerations or abrasions Course Vital Signs: Vital signs: Vital Signs Temperature 97.8 F 07/05/21 12:25 Pulse Rate 75 07/05/21 12:51 Respiratory Rate 16 07/05/21 12:51 Blood Pressure 105/71 07/05/21 12:51 Pulse Oximetry 98 07/05/21 12:51 MDM - Headache MDM Narrative: Medical decision making narrative: Patient states she has tried several abortive and prophylactic medications for her migraine headaches all without relief. She states her last round of occipital nerve blocks did not seem to help either. She tells me she has an appointment with Dr. Villatoro in 2 days which I think will be best for follow up/further management and better control of her headaches. Discharge Plan Discharge Patient Disposition: Home Clinical Impression: Migraine Qualifiers: Migraine type: without aura Status migrainosus presence: with status migrainosus Intractability: intractable Qualified Code(s): G43.011 - Migraine without aura, intractable, with status migrainosus Condition: Stable Prescriptions: No Action folic acid 1 mg tablet 1 mg PO DAILY Qty: 90 RF: 3 vit B complex 100 combo no.2 100 mg tablet extended release PO RF: 0 lorazepam [Ativan] 0.5 mg tablet 0.5 mg PO DAILY PRNRF: 0 mirtazapine [Remeron] 15 mg tablet 7.5 mg PO DAILY PRN (Reason: unknown) RF: 0 Tumeric 1 tab PO DAILY@0700 RF: 0 Red Ghulam 1 tab PO DAILY@0700 RF: 0 gabapentin 300 mg capsule 300 mg PO TID PRNRF: 0 Ajovy Autoinjector 225 mg/1.5 mL auto-injector 225 mg SUBCUT Q30D Qty: 1.5 RF: 2 ondansetron HCl [Zofran] 4 mg tablet 4 mg PO Q8H PRN (Reason: nausea and vomiting) Qty: 30 RF: 0 prednisone 5 mg tablet 7.5 mg PO DAILY Qty: 45 RF: 3 methotrexate sodium 2.5 mg tablet 20 mg PO .Q7days Qty: 40 RF: 3 Advair Diskus 250-50 mcg/dose Blister With Device 1 inh INHALATION BID@0700,1999 RF: 0 Tylenol 325 mg Tablet 325 - 650 mg PO DAILY PRN (Reason: Pain) RF: 0 Cyanacobalamin 1,000 mcg/mL Solution 1,000 mcg IM Q30D RF: 0 valacyclovir 1 gram tablet 1,000 mg PO BID@0700,2000 PRNRF: 0 Vistaril 25 mg capsule 25 mg PO TID PRN (Reason: anxiety) Qty: 20 RF: 0 bupropion HCl 150 mg tablet sustained-release 12 hr 150 mg PO BID@0700,1800 RF: 0 Vitamin C Powder See Rx Instructions .ROUTE .COMPLEX RF: 0 ibuprofen 200 mg Tablet 800 mg PO PRN RF: 0 fluticasone propionate 50 mcg/actuation spray,suspension 2 spray INTRANASAL DAILY@0700 RF: 0 albuterol sulfate [ProAir HFA] 90 mcg/actuation HFA aerosol inhaler 2 puff INHALATION BID@0700,1800 RF: 0 pantoprazole 40 mg tablet,delayed release (DR/EC) 40 mg PO DAILY@0700 RF: 0 Discharge Orders: Discharge ED (Routine); Ordered 07/05/21 Ordered By: Misty Augustin Referrals: Maverick Moore [Primary Care Provider] - Coding Level of Care Code 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
[2021-07-05] MEDS: ketorolac 60 mg/2 mL INJ IM (13:26)
== END 2021-07-05 14:24 | disposition home or self-care (01) ==
PROVIDERS: Emergency Provider Physician Assistant; PCP Family Medicine
DX: G43.011 Migraine without aura, intractable, with status migrainosus (principal); Z87.891 Personal history of nicotine dependence
CPT/HCPCS: 96372; 99283; J1885

== ENCOUNTER → 2021-07-07 09:55 | Outpatient (BNVA) | payer MEDICAID, SELFPAY | PROVIDERS: PCP Family Medicine; Visit Provider Specialist | DX: G43.711 Chronic migraine without aura, intractable, with status migrainosus (principal); M79.7 Fibromyalgia | CPT/HCPCS: 99213; 99214 ==

== ENCOUNTER → 2021-07-12 10:32 | Outpatient (BNVA) | payer MEDICAID, SELFPAY | PROVIDERS: PCP Family Medicine; Visit Provider Internal Medicine Rheumatology | DX: R76.8 Other specified abnormal immunological findings in serum (principal); M19.90 Unspecified osteoarthritis, unspecified site; M35.9 Systemic involvement of connective tissue, unspecified; Z79.899 Other long term (current) drug therapy; Z71.85 Encounter for immunization safety counseling | CPT/HCPCS: 99214 ==

== ENCOUNTER 2021-09-15 13:35 | Outpatient (CLI) | payer MEDICAID, SELFPAY ==
[2021-09-15 14:25] LABS: Basophils # 0.1 10^3/uL (0.0-0.1); Basophils % 0.8 %; Eosinophils # 0.1 10^3/uL (0.0-0.8); Eosinophils % 1.4 %; Hematocrit 41.8 % (37.0-47.0); Hemoglobin 13.9 g/dL (11.5-15.3); Lymphocytes # 2.1 10^3/uL (0.8-4.8); Lymphocytes % 24.3 %; Mean Corpuscular HGB Conc 33.3 g/dL (30.0-36.0); Mean Corpuscular Hemoglobin 29.6 pg (28.0-34.0); Mean Corpuscular Volume 89.1 fl (81-99); Mean Platelet Volume 11.1 fL (7.4-10.4); Monocytes # 0.7 10^3/uL (0.2-0.9); Monocytes % 7.6 %; Neutrophils # 5.68 10^3/uL (1.8-7.7); Neutrophils % 65.7 %; Nucleated Red Blood Cells % 0 %; Platelet Count 333 10^3/cmm (130-400); Red Blood Count 4.69 10^6/uL (4.1-5.3); Red Cell Distribution Width 13.2 % (12.1-15.1); White Blood Count 8.7 10^3/uL (4.0-10.0)
[2021-09-15 14:36] LABS: Alanine Aminotransferase 7 U/L (0-33); Albumin Level 4.4 g/dL (3.5-5.2); Alkaline Phosphatase 74 IU/L (35-105); Aspartate Amino Transferase 18 U/L (0-32); Globulin 2.8 g/dL (1.3-4.6); Glomerular Filtration Rate 111.9 mL/min (90-130); Total Bilirubin 0.2 mg/dL (0.15-1.2); Total Protein 7.2 g/dL (6.6-8.7)
== END 2021-09-15 13:36 | disposition home or self-care (01) ==
LOC: LAB 13:41
PROVIDERS: PCP Family Medicine; Visit Provider Internal Medicine Rheumatology
DX: M19.90 Unspecified osteoarthritis, unspecified site (principal); Z79.899 Other long term (current) drug therapy
CPT/HCPCS: 80076; 82565; 85025; 86140

== ENCOUNTER → 2021-10-15 11:32 | Outpatient (BNVA) | payer MEDICAID, SELFPAY | PROVIDERS: PCP Family Medicine; Visit Provider Nurse Practitioner | DX: F43.12 Post-traumatic stress disorder, chronic (principal) | CPT/HCPCS: 90792 ==

== ENCOUNTER → 2021-11-12 14:49 | Outpatient (BNVA) | payer MEDICAID, SELFPAY | PROVIDERS: PCP Family Medicine; Visit Provider Nurse Practitioner | DX: F43.12 Post-traumatic stress disorder, chronic (principal) | CPT/HCPCS: 99214 ==

== ENCOUNTER → 2021-12-10 14:02 | Outpatient (BNVA) | payer MEDICAID, SELFPAY | PROVIDERS: PCP Family Medicine; Visit Provider Nurse Practitioner | DX: F43.12 Post-traumatic stress disorder, chronic (principal) | CPT/HCPCS: 99214 ==

== ENCOUNTER → 2021-12-27 10:48 | Outpatient (BNVA) | payer MEDICAID, SELFPAY | PROVIDERS: PCP Family Medicine; Visit Provider Internal Medicine Rheumatology | DX: M35.9 Systemic involvement of connective tissue, unspecified (principal); M25.541 Pain in joints of right hand; M25.542 Pain in joints of left hand; Z79.899 Other long term (current) drug therapy; M79.7 Fibromyalgia | CPT/HCPCS: 36415; 80076; 82565; 85025; 86140; 99214 ==

== ENCOUNTER 2022-04-15 12:27 | Outpatient (CLI) | payer MEDICAID, SELFPAY ==
[2022-04-15 13:53] LABS: Add Urine Culture? No; Bacteria Urine 1+ /hpf; Bilirubin Urine Neg (Negative); Blood Urine Neg (Negative); Glucose Urine UA Norm (Normal); Ketones Urine Negative (Negative); Leukocyte Esterase Urine 2+ (Negative); Nitrate Urine Negative (Negative); Protein Urine Neg (Negative); RBC Urine 0-4 /hpf (0-2); Squamous Epithelial Cell Urine 15-25 /hpf (0-5); Trichomonas Urine 1+ /hpf; Urine Appearance Hazy (CLEAR); Urine Color Yellow (Yellow); Urobilinogen Urine Norm (Negative); WBC Urine 25-40 /hpf (0-5); pH Urine 6 (5-7)
[2022-04-15 13:58] LABS: Urine Creatinine 111 mg/dL (28-217); Urine Protein Random 9 mg/dL
== END 2022-04-15 12:28 | disposition home or self-care (01) ==
LOC: LAB 12:30
PROVIDERS: PCP Family Medicine; Visit Provider Internal Medicine Rheumatology
DX: M35.9 Systemic involvement of connective tissue, unspecified (principal); Z79.899 Other long term (current) drug therapy
CPT/HCPCS: 81001; 82570; 84156

== ENCOUNTER 2022-08-20 02:49 | Emergency (ER) | payer MEDICAID, SELFPAY ==
[2022-08-20 03:00] VITALS: BP 125/85; PULSE 92; RESP 18; TEMP 36.6; O2SAT 96; BMI 22.4
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
[2022-08-20] MEDS: tetanus-dipt-pertussis 0.5 mL SDV IM (04:36)
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
== END 2022-08-20 05:06 | disposition home or self-care (01) ==
PROVIDERS: Emergency Provider Emergency Medicine; PCP Family Medicine
DX: S06.0X0A Concussion without loss of consciousness, initial encounter (principal); S40.012A Contusion of left shoulder, initial encounter; S60.477A Other superficial bite of left little finger, initial encounter; Y04.1XXA Assault by human bite, initial encounter; Z87.891 Personal history of nicotine dependence; M32.9 Systemic lupus erythematosus, unspecified; Y04.2XXA Assault by strike against or bumped into by another person, initial encounter; Z23 Encounter for immunization
CPT/HCPCS: 70450; 72125; 73030; 73140; 90471; 90715; 99284

== ENCOUNTER → 2022-10-04 15:56 | Outpatient (BNVA) | payer MEDICAID, SELFPAY | PROVIDERS: PCP Family Medicine; Visit Provider Internal Medicine Rheumatology | DX: M32.9 Systemic lupus erythematosus, unspecified (principal); Z79.899 Other long term (current) drug therapy; R53.83 Other fatigue | CPT/HCPCS: 36415; 80076; 82306; 82565; 82607; 84439; 84443; 85025; 86140 ==

== ENCOUNTER 2022-12-18 12:40 | Emergency (ER) | payer MEDICAID, SELFPAY ==
[2022-12-18 12:55] VITALS: BP 128/75; PULSE 98; RESP 12; TEMP 36.7; O2SAT 99; BMI 21.7
--- NOTE | 2022-12-18 13:29 | W.ED.ANIMALB ---
HPI - Animal Bite General: Chief Complaint: Animal Bite Stated Complaint: tick bite allergic reaction Time Seen by Provider: 12/18/22 12:49 History of Present Illness: Patient is a 37-year-old female that presents to the emergency department with complaints of allergy and tick bite. Patient reports that she has a history of autoimmune disorder and has pretty severe allergies. Reports that last night she developed a spreading rash to her being outside on her porch. It was felt that it entered her airway. She treated herself at home with 75 mg of Benadryl and 25 mg of prednisone. She arrives here in the emergency department doing well, and in no acute distress. Patient states that while showering last night she also noted several seed ticks on her right hip. There is ecchymosis from where she has been scratching and has numerous bite mares Associated symptoms: Deny chills, fever(s) or headache(s) Review of Systems General: Reports: 10 or more systems reviewed and unremarkable except in HPI and below Const: Denies: fever(s), chills, change in appetite, change in weight, fatigue or malaise Eyes: Denies: change in vision, eye discomfort, eye discharge or eye redness ENMT: Denies: throat pain, enlarged tonsils, odynophagia, hoarseness, ear or mastoid pain, ear discharge, change in hearing, tinnitus, nasal discharge, nasal congestion, post nasal drip or sinus pain Card: Denies: chest pain, palpitations, irregular heart rhythm, edema, dyspnea on exertion, orthopnea or leg pain with exertion Resp: Denies: dyspnea, productive cough, non-productive cough, wheezing, stridor or chest congestion GI: Denies: abdominal pain, nausea, vomiting, dysphagia, diarrhea, constipation, bloating, GI cramping or hematochezia : Denies: flank pain, difficulty voiding, dysuria, urinary frequency, urinary urgency, urinary hesitancy, oliguria or hematuria Musc: Denies: neck pain, back pain, extremity pain, joint pain, joint swelling, joint redness, joint warmth or muscle weakness Skin/Breast: Reports: rash, pruritus and erythema; Denies: photosensitivity or new lesions Neuro: Denies: headache(s), numbness in extremities, weakness in extremities, sensory changes, lack of coordination, difficulty walking, frequent falls, dizziness, confusion, Slurred speech present, difficulty communicating thoughts, seizure-like activity or involuntary movements Endo: Denies: polyuria, polydipsia or tired all the time Ga/Lymph: Denies: easy bruising or easy bleeding [facility] ED PFSH: Medical History (Updated 12/18/22 @ 13:36 by MAXIMINO Nunez) Acute anxiety Anxiety Arthralgia of both hands Asthmatic bronchitis , chronic Bipolar disorder delivery delivered x3 Generalized anxiety disorder High risk medication use Immunization counseling Inflammatory arthritis Inflammatory arthritis Positive PITO (antinuclear antibody) Psychiatric care Raynauds disease SLE (systemic lupus erythematosus related syndrome) Undifferentiated connective tissue disease Surgical History (Updated 10/04/22 @ 15:33 by Moises Werner MD) H/O breast augmentation Family History Mother Cancer Father Cancer Social History Smoking and tobacco status: never smoked Quit status (tobacco): has quit using tobacco Year quit tobacco: 2019 Second hand smoke exposure: No Smoking risk assessment/counseling performed?: No Alcohol intake: former Year of sobriety/quit date alcohol: 2018 Desire information about alcohol rehabilitation?: No Counseling given: No Substance/Drug Use: former Date of last use: 2012 Desire information about substance/drug rehabilitation?: No Counseling given: No Physical Exam Const: COMMON NORMALS: no acute distress, patient oriented x3 and alert GENERAL APPEARANCE: cooperative ORIENTATION/CONSCIOUSNESS: Yes awake, Yes oriented to person, Yes oriented to place and Yes oriented to time HENMT: COMMON NORMALS: normocephalic and atraumatic HEAD & SCALP: normocephalic and atraumatic FACE & SINUS: normal facial exam MOUTH: Normal oral and palatal mucosa present THROAT: posterior oropharynx normal Eye: COMMON NORMALS: Equal, round and reactive pupils present, EOMs intact bilaterally, conjunctivae normal and no scleral icterus GENERAL EYE: appearance normal, both eyes and all related structures ALIGNMENT: Yes alignment normal PERIORBITAL: periorbital findings normal CONJUNCTIVA: Yes conjunctivae normal PUPIL: Yes Equal, round and reactive pupils present Neck/C-Spine: COMMON NORMALS: full ROM GENERAL: Yes normal visual inspection Lymph: LYMPHATIC: no lymphadenopathy noted Chest: COMMONS NORMALS: normal inspection of the chest Breast/axilla inspection: Yes no chest deformity, asymmetry, normal contours, no nodules, masses, tenderness Resp: COMMON NORMALS: normal respiratory effort, No retractions, No use of accessory muscles and clear to auscultation bilaterally EFFORT & INSPECTION: Yes able to speak in complete sentences and Yes symmetric chest movement AUSCULTATION: clear to auscultation bilaterally Cardio: COMMON NORMALS: regular rate, regular rhythm and Peripheral pulses 2+ throughout RATE: regular rate RHYTHM: regular rhythm PERIPHERAL PULSES: Peripheral pulses 2+ throughout GI: COMMON NORMALS: Normal to inspection, nondistended, normoactive bowel sounds present, Soft to palpation, non-tender and No hepatosplenomegaly present INSPECTION: Yes normal to inspection AUSCULTATION: Yes normoactive bowel sounds PALPATION: Yes Soft to palpation and Yes No hepatosplenomegaly present RECTAL EXAM: deferred Extremity: COMMON NORMALS: normal to inspection GENERAL: Yes normal exam except as noted Neuro: COMMON NORMALS: patient oriented x3 SENSORIUM/ORIENTATION: Yes alert, Yes oriented to person, Yes oriented to place and Yes oriented to time CRANIAL NERVES: Yes CN normal except as noted Psych: COMMON NORMALS: mental status grossly normal, Normal thought process present, cooperative, activity/motor behavior normal, denies homicidal ideation and denies suicidal ideation THOUGHT PROCESS: Normal thought process present Skin: COMMON NORMALS: no rashes or lesions noted, no wounds and turgor normal SKIN IMAGES (FEMALE): 1. 3 small bite mares that she describes as seed tick mares. There is ecchymotic and excoriated tissue from scratching GENERAL SKIN EXAM: no rashes or lesions noted and turgor normal Course Vital Signs: Vital signs: Vital Signs Temperature 98.1 F 12/18/22 12:55 Pulse Rate 98 12/18/22 12:55 Respiratory Rate 12 12/18/22 12:55 Blood Pressure 128/75 12/18/22 12:55 Pulse Oximetry 99 12/18/22 12:55 Oxygen Delivery Me thod Room Air 12/18/22 12:55 MDM - Animal Bite Medical Decision Making Patient was evaluated in the emergency department due to an allergic reaction she had last night. Arrived request of a Decadron or a steroid injection. While interviewing her it became clear that she had a tick bite and is at risk for tickborne illness. I am going to treat her prophylactically with 200 mg of doxycycline. Patient is agreeable. Patient is going to discharge home and follow-up with primary care as needed All questions answered in detail Discharge Plan Discharge Patient Disposition: Home Clinical Impression: Tick bite, Allergic reaction Condition: Stable Prescriptions: No Action hydroxychloroquine 200 mg tablet See Rx Instructions PO .COMPLEX Qty: 135 1RF Rx Instructions: Alternate taking 1 tab today then 2 tabs tomorrow. 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
[2022-12-18] MEDS: dexamethasone 10 mg/mL INJ IM (13:36)
[2022-12-18] MEDS: doxycycline 100 mg Tablet 200 MG PO (13:36)
== END 2022-12-18 13:39 | disposition home or self-care (01) ==
PROVIDERS: Emergency Provider Nurse Practitioner; PCP Family Medicine
DX: S30.860A Insect bite (nonvenomous) of lower back and pelvis, initial encounter (principal); W57.XXXA Bitten or stung by nonvenomous insect and other nonvenomous arthropods, initial encounter; T63.481A Toxic effect of venom of other arthropod, accidental (unintentional), initial encounter; Z87.891 Personal history of nicotine dependence; M32.9 Systemic lupus erythematosus, unspecified
CPT/HCPCS: 96372; 99284; J1100

== ENCOUNTER 2023-10-16 07:40 | Oncology outpatient (recurring) (ONCR) | payer MEDICAID, SELFPAY ==
--- NOTE | 2023-10-16 07:54 | PC.NURSE ---
patient reports that her pain level at this time is 3/10. Will proceed with [facility] protocol orders.
[2023-10-16 08:08] VITALS: BP 118/76; PULSE 81; RESP 16; TEMP 36.7; O2SAT 97
[2023-10-16] MEDS: ondansetron 2 mg/ML SDV 2 mL 4 MG IVP (08:13)
[2023-10-16] MEDS: diphenhydrAMINE 50 mg/mL SDV 1mL 25 MG IVP (08:17)
[2023-10-16] MEDS: dihydroergotamine 1 mg/mL Inj 0.5 MG IVP (08:30)
[2023-10-16 08:55] VITALS: BP 127/82; PULSE 75; RESP 16; O2SAT 97
[2023-10-16] MEDS: ketorolac 30 mg/mL INJ IVP (09:21)
[2023-10-16] MEDS: methylPREDNISolone sod succ 125 mg/2 mL INJ IVP (09:25)
[2023-10-16 09:26] VITALS: BP 117/77; PULSE 67; RESP 16; O2SAT 95
== END 2023-10-22 23:59 | disposition home or self-care (01) ==
PROVIDERS: PCP Family Medicine; Visit Provider Family Medicine
DX: G43.711 Chronic migraine without aura, intractable, with status migrainosus (principal)
CPT/HCPCS: 96374; 96375; J1110; J1200; J1885; J2405; J2930

== ENCOUNTER 2023-11-10 08:46 | Outpatient (CLI) | payer MEDICAID, SELFPAY ==
--- NOTE | 2023-11-10 09:01 | MM_ITS ---
WS: [id number] VIEWS: MLO, CC, and ML views both breasts. 3D digital tomosynthesis is also included in this exam. B reast implant displacement CC, MLO and ML views with tomography also included. No comparisons. Findings: There was no sign of mass, architectural distortion or suspicious calcification in either breast. 3 m m sharply circumscribed subcutaneous nodule seen in the LEFT retroareolar area about 6:00. Most likel y tiny cyst or sebaceous cyst. This has benign appearance. There are are scattered areas of fibroglan dular density. Intact bilateral breast implants noted. Impression: MM/[place] [id number] BI-RADS: 2-Benign FOLLOW-UP: 1 Year Follow-up This mammogram was also analyzed by the Computer Aided Detection System R2 Imag e Director Bioinformatics.
--- NOTE | 2023-11-10 09:01 | US_ITS ---
WS: [id number] Exam: US breast BI limited* [id number] Date/Time of Exam: 11/10/2023 10:20 AM Reason For Exam: SHAWNA BR PAIN Bilateral breast ultrasound performed. There was no sign of suspicious solid mass or nodule in either breast. Bilateral intact breast implants are noted. IMPRESSION: 1. Negative bilateral breast ultrasound. 2. Bilateral intact breast implants. BI-RADS Category 1 negative. Recommendations: Continue yearly screening mammography.
== END 2023-11-10 08:47 | disposition home or self-care (01) ==
LOC: RAD 08:46
PROVIDERS: PCP Family Medicine; Visit Provider Family Medicine
DX: N64.4 Mastodynia (principal); Z98.82 Breast implant status
CPT/HCPCS: 76642; 77062; G0279

== ENCOUNTER 2024-03-14 15:12 | Outpatient (CLI) | payer MEDICAID, SELFPAY | END 2024-03-14 15:13 | disposition home or self-care (01) | LOC: LAB 15:13 | PROVIDERS: PCP Family Medicine; Visit Provider Internal Medicine Rheumatology | DX: M32.9 Systemic lupus erythematosus, unspecified (principal); Z79.899 Other long term (current) drug therapy | CPT/HCPCS: 80076; 82565; 85025; 85651; 86140; 86200; 86431 ==

== ENCOUNTER → 2024-08-05 14:03 | Outpatient (BNVA) | payer MEDICAID, SELFPAY | PROVIDERS: PCP Family Medicine; Visit Provider Internal Medicine Rheumatology | DX: M32.9 Systemic lupus erythematosus, unspecified (principal); Z79.899 Other long term (current) drug therapy | CPT/HCPCS: 36415; 80076; 82565; 85025; 85651; 86140 ==

== ENCOUNTER → 2024-11-11 15:53 | Outpatient (BNVA) | payer MEDICAID, SELFPAY | PROVIDERS: PCP Family Medicine; Visit Provider Internal Medicine Rheumatology | DX: M32.9 Systemic lupus erythematosus, unspecified (principal); Z79.899 Other long term (current) drug therapy | CPT/HCPCS: 36415; 80076; 82565; 85025; 85651; 86140 ==

== ENCOUNTER → 2025-04-28 14:55 | Outpatient (BNVA) | payer MEDICAID, SELFPAY | PROVIDERS: PCP Family Medicine; Visit Provider Internal Medicine Rheumatology | DX: Z79.899 Other long term (current) drug therapy (principal) | CPT/HCPCS: 36415; 80076; 82306; 82565; 85025; 85651; 86140 ==